=== PATIENT | female | born 1990 | race Caucasian/White ===

== ENCOUNTER 2019-09-21 13:00 | Emergency (ER) | payer OTHER, SELFPAY ==
[2019-09-21 13:08] VITALS: BP 101/67; PULSE 104; RESP 14; TEMP 36.9; O2SAT 98
--- NOTE | 2019-09-21 13:25 | ED.FEMALEGU ---
HPI - Female Genitourinary General Chief complaint: Urogenital-Female Stated complaint: Uti Time Seen by Provider: 09/21/19 13:25 Source: patient Mode of arrival: ambulatory Limitations: no limitations History of Present Illness HPI Narrative: Camila Dow is a 29 yo femae with a PMH of uti, GERD, [facility] with c/o dysuria that started 2 days ago. Multiple tx for uti here (May, July); will return to urologist as this is his third UTI and is many months and PCP told her she must go to urologist with recurrent infection Related Data Allergies Allergy/AdvReac Type Severity Reaction Status Date / Time amoxicillin Allergy Mild Vomiting Verified 09/21/19 13:16 clavulanic acid Allergy Mild Vomiting Verified 09/21/19 13:16 lansoprazole Allergy Mild Vomiting Verified 09/21/19 13:16 Review of Systems Review of Systems: Narrative: CONSTITUTIONAL: Denies fever, chills, sweats. EYES: Denies visual changes, redness, discharge. ENT: Denies rhinorrhea, congestion, sore throat, otalgia. CARDIOVASCULAR: Denies chest pain, palpitations, edema. RESPIRATORY: Denies dyspnea, wheezing, cough GASTROINTESTINAL: Denies abdominal pain, nausea, vomiting, diarrhea. GENITOURINARY: Has dysuria, unknown hematuria because used Azo, no abnormal discharge SKIN: Denies rash or itching. NEUROLOGIC: Denies numbness, or focal weakness. PSYCHIATRIC: Denies anxiety or depression. PMFSH Past Medical History Medical History (Updated 09/21/19 @ 13:37 by Anya Jolly CNP) Appendicitis Surgical History Surgical History H/O laminectomy Family History Family History Other No active medical problems Social History Social History (Updated 09/21/19 @ 13:35 by Anya Jolly CNP) Smoking status: Former smoker Alcohol intake: current Comments At time of signature, I agree with nursing past medical, surgical, social and family history. There is no relevant family history pertinent to the presenting complaint. Exam Narrative: Exam Narrative: GENERAL: This is a well-nourished, well-developed patient, in mild distress. HEAD: normocephalic, atraumatic. EYES: Sclera clear/white. Vision is grossly intact. EARS: External ears normal. Hearing grossly intact. NOSE: External nose normal without nasal discharge, nares without redness, no rhinorrhea. THROAT: Mucous membranes moist, NECK: Neck supple, CARDIOVASCULAR: Tachycardic rate and rhythm without murmurs, gallops, or rubs. RESPIRATORY: Clear to auscultation. Breath sounds equal bilaterally. No wheezes, rales, or rhonchi. GASTROINTESTINAL: Abdomen soft, mild suprapubic tenderness, no CVA angle tenderness SKIN: warm, intact with no suspicious lesions or rash, good texture and turgor. NEURO: awake, alert, and oriented to person, place and time. There were no obvious focal neurologic abnormalities. Steady gait EXTREMITIES: Normal range of motion. BACK: Nontender without deformity Course Course Emergency Course: Discussed multiple antibiotics patient is already taken for UTI will treat with Cipro 500 twice daily x7 days Patient must follow-up with urology Vital Signs Vital signs: Vital Signs Temperature 98.4 F 09/21/19 13:08 Pulse Rate 104 H 09/21/19 13:08 Respiratory Rate 14 09/21/19 13:08 Blood Pressure 101/67 09/21/19 13:08 Pulse Oximetry 98 09/21/19 13:08 Temperature 98.4 F 09/21/19 13:08 Pulse Rate 104 H 09/21/19 13:08 Respiratory Rate 14 09/21/19 13:08 Blood Pressure 101/67 09/21/19 13:08 Pulse Oximetry 98 09/21/19 13:08 MDM - Female Genitourinary Differential Diagnosis Differential diagnosis: Likely urinary tract infection, cystitis and other Lab Data Labs: Urine Glucose Trace Reference Range: Negative Urine Bilirubin Negative Reference Range: Negative Urine Ketone
== END 2019-09-21 13:43 | disposition home or self-care (01) ==
PROVIDERS: Emergency Provider Nurse Practitioner
DX: N30.01 Acute cystitis with hematuria (principal); Z87.891 Personal history of nicotine dependence; K21.9 Gastro-esophageal reflux disease without esophagitis
CPT/HCPCS: 81003; 87077; 87086; 87088; 87186; 99203; G0463

== ENCOUNTER 2022-10-18 10:09 | Emergency (ER) | payer OTHER, SELFPAY ==
[2022-10-18 10:18] VITALS: BP 102/63; PULSE 69; RESP 18; TEMP 36.6; O2SAT 100
--- NOTE | 2022-10-18 10:27 | ED.FEMALEGU ---
HPI - Female Genitourinary General Chief complaint: Urogenital-Female Stated complaint: Poss UTI History of Present Illness HPI Narrative: Patient presents with urinary frequency burning with urination and voiding small amounts. Patient states she has a history of frequent urinary tract infections and is followed by urologist. Patient takes your a malik on a daily basis for her symptoms. Patient denies any fever no abdominal pain no pelvic pain no gross hematuria and no flank pain. No vaginal discharge no concern for STIs Related Data Home Medications Medication Instructions Recorded Confirmed methenam 118 mg-m.blue 10 10/18/22 mg-s.phos 40.8 mg-p.salic 36 mg-hyos capsule (Uribel) moxifloxacin 0.5 % eye drops drp 10/18/22 Allergies Allergy/AdvReac Type Severity Reaction Status Date / Time amoxicillin Allergy Mild Vomiting Verified 10/18/22 10:11 clavulanic acid Allergy Mild Vomiting Verified 10/18/22 10:11 lansoprazole Allergy Mild Vomiting Verified 10/18/22 10:11 Anesthetics - Amide Type - AdvReac Nausea and Verified 10/18/22 10:30 Select A Vomiting Review of Systems Review of Systems: CONSTITUTIONAL: Denies fever, chills, or sweats. EYES: Denies visual changes, redness, or discharge. ENT: Denies rhinorrhea, congestion, sore throat, or otalgia. CARDIOVASCULAR: Denies chest pain, palpitations, or edema. RESPIRATORY: Denies cough or dyspnea. GASTROINTESTINAL: Denies abdominal pain, nausea, vomiting, or diarrhea. GENITOURINARY: Denies dysuria or hematuria. SKIN: Denies rash or itching. MUSCULOSKELETAL: Denies back pain, joint pain, or myalgia. NEUROLOGIC: Denies headache, numbness, or weakness. PSYCHIATRIC: Denies anxiety or depression. [facility] Past Medical History Medical History (Updated 10/18/22 @ 10:31 by BYRON Whittaker) Appendicitis Surgical History Surgical History H/O laminectomy Family History Family History Other No active medical problems Social History Social History (Updated 09/21/19 @ 13:35 by Anya A. Rik, CAP COVERER) Smoking status: Former smoker Alcohol intake: current Comments At time of signature, agree with nursing past medical, surgical, social and family history. There is no relevant family history pertinent to the presenting complaint Exam Narrative: GENERAL: Well-appearing, well-nourished, and in no acute distress. HEAD: Normocephalic, atraumatic. EYES: PERRLA and EOMI. ENT: Nares clear, no rhinorrhea or epistaxis. Mucous membranes moist. NECK: Supple. CHEST: Clear to auscultation. No respiratory distress. HEART: Regular rate and rhythm. No murmur heard. Normal peripheral pulses. ABDOMEN: Soft, nontender, nondistended, normal active bowel sounds. EXTREMITIES: Normal range of motion. No edema. SKIN: Warm, dry, no rash. NEURO: No focal deficits. Alert and oriented x3. [place] Coma Scale Eye Opening: Spontaneous 4 [place] Coma Scale Motor: Obeys Commands 6 [place] Coma Scale Verbal: Oriented 5 [place] Coma Scale Total 15 Course Course Level of Care: Express Care Visit Vital Signs Vital signs: Vital Signs Temperature 36.6 C 10/18/22 10:18 Pulse Rate 69 10/18/22 10:18 Respiratory Rate 18 10/18/22 10:18 Blood Pressure 102/63 10/18/22 10:18 Pulse Oximetry 100 10/18/22 10:18 Oxygen Delivery Room Air 10/18/22 10:18 Temperature 36.6 C 10/18/22 10:18 Pulse Rate 69 10/18/22 10:18 Respiratory Rate 18 10/18/22 10:18 Blood Pressure 102/63 10/18/22 10:18 Pulse Oximetry 100 10/18/22 10:18 Oxygen Delivery Room Air 10/18/22 10:18 Discharge Plan Discharge Clinical Impression: Bacterial UTI, Dysuria Patient Disposition: Home, Self-Care Condition: Stable Instructions: Antibiotic Form, Urinary Tract Infection in Women (DC) Additional Instructions: Increase fluids daniela
== END 2022-10-18 10:35 | disposition home or self-care (01) ==
PROVIDERS: Emergency Provider Nurse Practitioner Family
DX: N39.0 Urinary tract infection, site not specified (principal); Z87.891 Personal history of nicotine dependence
CPT/HCPCS: 81003; 87086; 99203; G0463

== ENCOUNTER 2023-05-13 15:07 | Emergency (ER) | payer OTHER, SELFPAY ==
[2023-05-13 15:22] VITALS: BP 106/65; PULSE 84; RESP 14; TEMP 36.8; O2SAT 100
--- NOTE | 2023-05-13 15:45 | ED.SKABFB ---
HPI - Skin/Abscess/Foreign Bdy General Chief complaint: Skin/Abscess/Foreign Body Stated complaint: cold sore on nose Time Seen by Provider: 05/13/23 15:35 Source: patient Mode of arrival: ambulatory Limitations: no limitations History of Present Illness HPI narrative: 32-year-old female to Express Care for complaint of lesion to left upper lip and inside of left nare for 2 days. Patient has been to treat at home with very without improvement. Patient endorses allergy to Augmentin and Prevacid. Patient denies fever, cough, headache. Patient able to tolerate fluids by mouth. Related Data Allergies Allergy/AdvReac Type Severity Reaction Status Date / Time amoxicillin Allergy Mild Vomiting Verified 05/13/23 15:20 clavulanic acid Allergy Mild Vomiting Verified 05/13/23 15:20 lansoprazole Allergy Mild Vomiting Verified 05/13/23 15:20 Anesthetics - Amide Type - AdvReac Nausea and Verified 05/13/23 15:20 Select A Vomiting PMFSH Past Medical History Medical History (Updated 05/13/23 @ 15:54 by Gita Godinez APRN) Appendicitis Surgical History Surgical History H/O laminectomy Family History Family History Other No active medical problems Social History Social History (Updated 09/21/19 @ 13:35 by Anya Jolly, CONTROL SYSTEM MANAGER) Smoking status: Former smoker Alcohol intake: current Course Course Level of Care: Express Care Visit Vital Signs Vital signs: Vital Signs Temperature 36.8 C 05/13/23 15:22 Pulse Rate 84 05/13/23 15:22 Respiratory Rate 14 05/13/23 15:22 Blood Pressure 106/65 05/13/23 15:22 Pulse Oximetry 100 05/13/23 15:22 Oxygen Delivery Room Air 05/13/23 15:22 Temperature 36.8 C 05/13/23 15:22 Pulse Rate 84 05/13/23 15:22 Respiratory Rate 14 05/13/23 15:22 Blood Pressure 106/65 05/13/23 15:22 Pulse Oximetry 100 05/13/23 15:22 Oxygen Delivery Room Air 05/13/23 15:22 MDM - Skin/Abscess/Foreign Bdy MDM Narrative Medical decision making narrative: 32-year-old female to Express Care for complaint of lesion to left upper lip and inside of left nare for 2 days. Patient exam consistent with herpesviral infection. Patient is sitting comfortably in exam room nontoxic in appearance. Patient appropriate for outpatient treatment and follow-up. Discharge instructions reviewed with patient, as well as provided in writing per nursing staff. The instructions also include specific and strict return/GO TO THE ER as well as f/u information. All questions have been answered, and the patient deny any further questions with discharge and discharge plan. Differential Diagnosis Differential diagnosis: Likely abscess of skin or subcutaneous tissue, herpes zoster, allergic reaction to drug, cellulitis, eczema and contact dermatitis Discharge Plan Discharge Clinical Impression: Herpesviral infection Patient Disposition: Home, Self-Care Condition: Stable Instructions: Oral Herpes Infection (ED) Patient Language: Surinamese Prescriptions: New valacyclovir [Valtrex] 1 gram tablet 1,000 mg PO Q12H Qty: 14 0RF Follow-up/Referrals: Star,Montserrat Marcial MD [Primary Care Provider] - Stand Alone Forms: Work/School Release IP Time of Disposition: 15:54
== END 2023-05-13 15:58 | disposition home or self-care (01) ==
PROVIDERS: Emergency Provider Nurse Practitioner Family; PCP Family Medicine
DX: B00.9 Herpesviral infection, unspecified (principal); Z87.891 Personal history of nicotine dependence
CPT/HCPCS: 99213; G0463

== ENCOUNTER 2023-08-25 18:23 | Emergency (ER) | payer OTHER, SELFPAY ==
[2023-08-25 18:27] VITALS: BP 102/73; PULSE 81; RESP 16; TEMP 37.2; O2SAT 100
--- NOTE | 2023-08-25 18:31 | ED.GENADULT ---
HPI - General Adult General Chief complaint: Upper Respiratory Infection Stated complaint: Urinary Problem Source: patient and RN notes reviewed Mode of arrival: ambulatory Limitations: no limitations History of Present Illness HPI narrative: 33 y/o female with hx interstitial cystitis presented for c/o burning with urination, frequency and urgency. onset one week. Endorses bloating and suprapubic pressure. Denies hematuria, nausea, vomiting, abdominal pain, flank pain, constipation, diarrhea, fevers or chills. Took Uribel and hydroxyzine. Related Data Home Medications Medication Instructions Recorded Confirmed No Home Medications 08/25/23 08/25/23 Allergies Allergy/AdvReac Type Severity Reaction Status Date / Time amoxicillin Allergy Mild Vomiting Verified 08/25/23 18:31 clavulanic acid Allergy Mild Vomiting Verified 08/25/23 18:31 lansoprazole Allergy Mild Vomiting Verified 08/25/23 18:31 Anesthetics - Amide Type - AdvReac Nausea and Verified 08/25/23 18:31 Select A Vomiting Review of Systems Review of Systems: CONSTITUTIONAL: Denies body aches, fever, chills, or sweats. CARDIOVASCULAR: Denies chest pain, palpitations, or edema. RESPIRATORY: Denies cough or dyspnea. GASTROINTESTINAL: Denies abdominal pain, nausea, vomiting, or diarrhea. GENITOURINARY: Reports dysuria, frequency, urgency, denies hematuria, flank pain SKIN: Denies rash, itching, or wounds. MUSCULOSKELETAL: Denies back pain or myalgia. [facility] Past Medical History Medical History (Updated 08/25/23 @ 18:43 by Rozina Jang APRN) Appendicitis Interstitial cystitis Surgical History Surgical History H/O laminectomy Family History Family History Other No active medical problems Social History Social History Smoking status: Former smoker Alcohol intake: current Comments At time of signature, I have reviewed and agree with nursing past medical, surgical, social and family history unless otherwise noted. Please see nursing chart for further information. There is no relevant family history pertinent to the presenting complaint Exam Narrative: GENERAL: Well-appearing and in no acute distress. ENT: Mucous membranes pink and moist. NECK: Normal AROM. Supple. CHEST: No respiratory distress. Clear to auscultation. HEART: Regular rate and rhythm. ABDOMEN: Soft, nondistended, normal active bowel sounds. Suprapubic tenderness. No CVA tenderness SKIN: Warm, dry, no rash. NEURO: No focal deficits. Alert and oriented x3. Gait steady. PSYCH: Normal affect. Course Course Emergency Course: Patient is aware of diagnosis, understands and agrees to treatment plan. Anticipatory guidance given. Patient agrees to follow-up as directed and is aware of reasons to seek care at the emergency department. Portions of this record may have been created with voice recognition software Level of Care: Express Care Visit Vital Signs Vital signs: Reviewed Medical Decision Making MDM Narrative Medical decision making narrative: Discussed physical exam findings and urine dip. Advised supportive measures and signs/symptoms to go to the ER. Pt is appropriate for outpt treatment and f/u. Differential Diagnosis Differential Diagnosis: UTI, cystitis, vaginitis Discharge Plan Discharge Clinical Impression: Cystitis Patient Disposition: Home, Self-Care Condition: Stable Instructions: Antibiotic Form, Urinary Tract Infection in Women (ED), Interstitial Cystitis (ED) Additional Instructions: Your urine will be sent of for a culture to determine if bacteria is causing your symptoms. If the culture shows a UTI, you will be notified and an antibiotic will be called in for you. you will need to follow up with your PCP/urologist for further evaluation and
== END 2023-08-25 18:45 | disposition home or self-care (01) ==
PROVIDERS: Emergency Provider Nurse Practitioner Family; PCP Family Medicine
DX: N30.90 Cystitis, unspecified without hematuria (principal)
CPT/HCPCS: 81003; 87086; 99213; G0463

== ENCOUNTER 2024-01-25 10:29 | Emergency (ER) | payer OTHER, SELFPAY ==
--- NOTE | ~2024-01-25 | XR_ITS ---
XR wrist RT min 3V Ordering provider: Gita Godinez APRN History: . pain,swelling. Unknown injury . Comparison: None. FINDINGS: BONES: No acute fracture or dislocation. No definite scaphoid fracture. JOINT SPACES: Normal. SOFT TISSUES: Normal. IMPRESSION: No acute osseous abnormality right wrist. Reviewed, dictated and finalized at location A. [employer]
[2024-01-25 10:38] VITALS: BP 94/67; PULSE 75; RESP 16; TEMP 36.5; O2SAT 100
--- NOTE | 2024-01-25 11:29 | ED_ITS ---
HPI - Extremity Injury (Upper) General Chief Complaint: Extremity Injury, Upper Stated Complaint: right wrist swollen and painful Time Seen by Provider: 01/25/24 11:29 Source: patient, RN notes reviewed and old records reviewed Mode of arrival: ambulatory Limitations: no limitations History of Present Illness HPI narrative: 33-year-old female to Express Care with complaint right dorsal wrist pain that started Wednesday morning. Patient states that pain intermittently radiates into hand and upper arm. Patient denies injury, pertinent medical history. 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 Patient states she also was horsing around with her large dog over the weekend which could have caused the issue. Patient states pain became acutely worse this morning. Patient denies numbness, tingling, weakness, decreased ROM. Patient resting comfortably in exam room in no acute distress. Related Data Home Medications Medication Instructions Recorded Confirmed No Home Medications 08/25/23 01/25/24 Allergies Allergy/AdvReac Type Severity Reaction Status Date / Time amoxicillin Allergy Mild Vomiting Verified 01/25/24 10:55 clavulanic acid Allergy Mild Vomiting Verified 01/25/24 10:55 lansoprazole Allergy Mild Vomiting Verified 01/25/24 10:55 Anesthetics - Amide Type - AdvReac Nausea and Verified 01/25/24 10:55 Select A Vomiting Review of Systems Review of Systems: All systems reviewed & are unremarkable except as noted in HPI and below Constitutional: Constitutional: Reports no additional constitutional complaint s Eyes: Eyes: Reports no additional eye complaints ENT: Reports system reviewed and no additional complaints, except as documented Cardiovascular: Cardiovascular: Reports no additional cardiovascular complaints, Denies chest pain and Denies dyspnea Respiratory: Respiratory: Reports no additional respiratory complaints, Denies cough and Denies dyspnea Musculoskeletal: Musculoskeletal: Reports as per HPI, Reports arthralgias and Reports joint swelling Neurologic: Reports system reviewed and no additional complaints, except as documented Psychiatric: Psychiatric: Reports no additional psychiatric complaints [facility] Past Medical History Medical History Appendicitis Interstitial cystitis Surgical History Surgical History H/O laminectomy Family History Family History Other No active medical problems Social History Social History Smoking status: Former smoker Alcohol intake: current Comments At the time of my signature, I reviewed and agree with the nursing past medical, surgical, social, and family history. There is no relevant family history pertinent to the patient complaint. Exam Const: General: cooperative, healthy appearing, comfortable, no acute distress, alert and well nourished Nutritional Appearance: well nourished Orientation/consciousness: patient oriented x3 Limitations: no limitations HENMT: Head: normal to inspection Ears: external ears normal Face/Nose/Sinus: Normal external nose present, Normal nares present, normal facial exam, No erythema and No edema Face and sinus: normal facial exam, no erythema and no edema Mouth: Yes Normal oral and palatal mucosa present Eyes: General: appearance normal, both eyes and all related structures Neck: Neck: normal visual inspection, full ROM and no meningeal signs Chest: Chest palpation & inspection: normal inspection of the chest Resp: Effort & Inspection: normal respiratory effort and able to speak in complete sentences Cardio: Jugular venous distension: no JVD Rate: regular rate Rhythm: regular rhythm Back/Spine/Pelvis: Cervical Spine: cervical ROM normal Skin: General skin exam: normal color, no rashes or lesions noted and turgor normal Neuro: General: patient oriented x3, gait normal, moves all extremities and no meningeal signs Speech: normal speech Gait exam (Neuro): Normal gait present Extrem: General: full ROM and capillary refill normal Right upper extremity: wrist tenderness of the dorsal wrist, swelling of the dorsal wrist, abnormal ROM pain with active ROM during and normal vascular exam; no unusual warmth, no abrasions, no lacerations, no ecchymosis, no crepitus and no deformity Psych: Appearance: grossly normal and well kempt Course Course Emergency Course: Some parts of this dictation were generated by voice recognition software and may contain typographical and/or grammatical inaccuracies. Level of Care: Express Care Visit Vital Signs Vital signs: Vital Signs Temperature 36.5 C 01/25/24 10:38 Pulse Rate 75 01/25/24 10:38 Respiratory Rate 16 01/25/24 10:38 Blood Pressure 94/67 L 01/25/24 10:38 Pulse Oximetry 100 01/25/24 10:38 Oxygen Delivery Room Air 01/25/24 10:38 Temperature 36.5 C 01/25/24 10:38 Pulse Rate 75 01/25/24 10:38 Respiratory Rate 16 01/25/24 10:38 Blood Pressure 94/67 L 01/25/24 10:38 Pulse Oximetry 100 01/25/24 10:38 Oxygen Delivery Room Air 01/25/24 10:38 reviewed MDM - Extremity Injury (Upper) MDM Narrative Medical decision making narrative: 33-year-old female to Express Care with complaint right dorsal wrist pain that started Wednesday morning. Patient states that pain intermittently radiates into hand and upper arm. Patient denies injury, pertinent medical history. 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 Patient states she also was horsing around with her large dog over the weekend which could have caused the issue. Patient states pain became acutely worse this morning. Patient denies numbness, tingling, weakness, decreased ROM. Patient resting comfortably in exam room in no acute distress. On exam, dorsal wrist tenderness with palpation, mild dorsal swelling. Pain with active ROM. Exam otherwise unremarkable. Radiology of right wrist negative for acute findings in clinic. Patient is sitting comfortably in exam room nontoxic in appearance. Patient appropriate for outpatient treatment and follow-up. Discharge instructions reviewed with patient, as well as provided in writing per nursing staff. The instructions also include specific and strict return/GO TO THE ER as well as f/u information. All questions have been answered, and the patient deny any further questions with discharge and discharge plan. Some parts of this dictation were generated by voice recognition software and may contain typographical and/or grammatical inaccuracies. Differential Diagnosis Differential diagnosis: Likely sprain and strain of wrist, fracture of wrist, finger sprain, dislocation of finger, Colles' fracture, fracture of hand, dislocation of shoulder, fracture of humerus and fracture of clavicle Imaging Data Radiologist's impression: XR wrist RT min 3V Ordering provider: Gita Godinez APRN History: . pain,swelling. Unknown injury . Comparison: None. FINDINGS: BONES: No acute fracture or dislocation. No definite scaphoid fracture. JOINT SPACES: Normal. SOFT TISSUES: Normal. IMPRESSION: No acute osseous abnormality right wrist. Discharge Plan Discharge Clinical Impression: Muscle strain of right wrist Patient Disposition: Home, Self-Care Condition: Stable Instructions: P.R.I.C.E. Treatment (ED), Swollen Joint (ED) Additional Instructions: please review detached instruction regarding swollen joint and vargas treatment and implement suggestions as tolerated for new or worsening symptoms please go directly to the emergency department Prescriptions: No Action No Home Medications Follow-up/Referrals: PHYSICIAN NOT ON STAFF,NONSTAFF [Primary Care Provider] - Stand Alone Forms: Work/School Release IP
== END 2024-01-25 11:45 | disposition home or self-care (01) ==
PROVIDERS: Emergency Provider Nurse Practitioner Family
DX: S66.911A Strain of unspecified muscle, fascia and tendon at wrist and hand level, right hand, initial encounter (principal); Z87.891 Personal history of nicotine dependence; X58.XXXA Exposure to other specified factors, initial encounter
CPT/HCPCS: 73110; 99213; G0463

== ENCOUNTER 2024-11-08 10:20 | Emergency (ER) | payer OTHER, SELFPAY ==
[2024-11-08 10:27] VITALS: BP 98/65; PULSE 79; RESP 16; TEMP 36.9; O2SAT 100
--- NOTE | 2024-11-08 10:41 | ED.FEMALEGU ---
HPI - Female Genitourinary General Chief complaint: Urogenital-Female Stated complaint: UTI Time Seen by Provider: 11/08/24 10:41 Source: patient Mode of arrival: ambulatory Limitations: no limitations History of Present Illness HPI Narrative: 34 yo F with hx of IC presents with c/o urinary urgency, bladder spasm and bloating, dysuria for 1 day. Taking OTC urinary pain relief. Turned urine green. Afebrile. No N/V. All systems reviewed and negative except as noted above. Related Data Home Medications ?Medication ?Instructions ?Recorded ?Confirmed ?Last Taken ?Type hydroxyzine HCl 25 mg tablet mg 11/08/24 Unknown History methenam 118 mg-m.blue 10 11/08/24 Unknown History mg-s.phos 40.8 mg-p.salic 36 mg-hyos capsule (Uro-MP) Allergies Allergy/AdvReac Type Severity Reaction Status Date / Time amoxicillin Allergy Mild Vomiting Verified 11/08/24 10:34 clavulanic acid Allergy Mild Vomiting Verified 11/08/24 10:34 lansoprazole Allergy Mild Vomiting Verified 11/08/24 10:34 Anesthetics - Amide Type - AdvReac Nausea and Verified 11/08/24 10:34 Select A Vomiting PMFSH Past Medical History Medical History Appendicitis Interstitial cystitis Surgical History Surgical History H/O laminectomy Family History Family History Other No active medical problems Social History Social History Smoking status: Former smoker Alcohol intake: current Comments At time of signature, agree with nursing past medical, surgical, social and family history. There is no relevant family history pertinent to the presenting complaint. Exam Narrative: GENERAL: This is a well-nourished, well-developed patient, in no apparent distress. HEAD: normocephalic, atraumatic. EYES: PERRL. Sclera clear/white. Vision is grossly intact. EARS: External ears normal NOSE: External nose normal NECK: Neck supple, non-tender without lymphadenopathy, masses or thyromegaly. CARDIOVASCULAR: Regular rate and rhythm without murmurs, gallops, or rubs. RESPIRATORY: Clear to auscultation. Breath sounds equal bilaterally. No wheezes, rales, or rhonchi. SKIN: warm, Dry, intact with no suspicious lesions or rash, good texture and turgor. NEURO: awake, alert, and oriented to person, place and time. There were no obvious focal neurologic abnormalities. EXTREMITIES: No joint tenderness, effusion, or edema noted. Course Course Level of Care: Express Care Visit Vital Signs Vital signs: Vital Signs Temperature 36.9 C 11/08/24 10:27 Pulse Rate 79 11/08/24 10:27 Respiratory Rate 16 11/08/24 10:27 Blood Pressure 98/65 L 11/08/24 10:27 Pulse Oximetry 100 11/08/24 10:27 Oxygen Delivery Room Air 11/08/24 10:27 Temperature 36.9 C 11/08/24 10:27 Pulse Rate 79 11/08/24 10:27 Respiratory Rate 16 11/08/24 10:27 Blood Pressure 98/65 L 11/08/24 10:27 Pulse Oximetry 100 11/08/24 10:27 Oxygen Delivery Room Air 11/08/24 10:27 reviewed MDM - Female Genitourinary MDM Narrative Medical decision making narrative: unable to complaint urinalysis today due to green colored urine. Urine culture ordered. Due to patient's symptoms and history of urinary tract infections will treat with antibiotic. Patient is well-appearing, nontoxic. Agrees with plan of care. Differential Diagnosis Differential diagnosis: Likely urinary tract infection and cystitis Discharge Plan Discharge Clinical Impression: Urinary tract infection Qualifiers: Urinary tract infection type: site unspecified Patient Disposition: Home Condition: Stable Instructions: Antibiotic Form Additional Instructions: Take antibiotic as prescribed until gone. Follow-up with your urologist as needed. Patient Language: Cape Verdean Prescriptions: New sulfamethoxazole-trimethoprim [Bactrim DS] 800-160 mg tablet 1 tablet PO Q12H 5 Days Qty: 10 0RF No Action hydroxyzine HCl 25 mg tablet Uro-MP 118-10-40.8-36 mg capsule Follow-up/Referrals: Jake,MARK Palacios [Primary Care Provider, Unknown] Time of Disposition: 10:49
--- OUTSIDE RECORDS SUMMARY | 2024-11-08 10:43 | XMS_ITS | Encounter Summary ---
Author Organization [facility] Address [address] [place] [address] Phone Care Team Providers Care Aerospace Engineer Officer Armament Name Role Phone Nancy Pineda MD Unavailable [phone] Montserrat Graves MD Primary Care Provider [phone] Suzanne Joseph APRN, PRINCIPAL NETWORK ARCHITECT Primary Care Provider Reason for Visit * Reason Comments Medication Refill Encounter Details Date Type Department Care Team (Late st Contact Info) Description 03/30/2023 Refill [facility] [address] [place] [address] Emmanuel Briceno APRN, PRINCIPAL NETWORK ARCHITECT [address] [place] [address] Medication Refill Social History Tobacco Use Types Packs/Day Years Used Date Smoking Tobacco: Former Cigarettes 1 4 Smokeless Tobacco: Never Alcohol Use Standard Drinks/Week Comments No 0 (1 standard drink = 0.6 oz pur e alcohol) [facility] Utilities Answer Date Recorded In the past 12 months has [employer], gas, oil, or water company threatened to shut off services in your home? No 02/25/2023 Social Connection and Isolation Panel Answer Date Recorded In a typical week, how many times do you talk on the phone with family, friends, or neighbors? More than three times a week 02/25/2023 How often do you get togethe r with friends or relatives? Once a week 02/25/2023 How often do you attend chur ch or mormonism services? More than 4 times per year 02/25/2023 Do you belong to any clubs o r organizations such as oriental orthodox groups, unions, fraternal or athletic groups, or school groups? No 02/25/2023 Attends Club or Organization Meetings Not on umair e 02/25/2023 Are you , , di vorced, , never , or living with a partner? 02/25/2023 AUDIT-C Answer Date Recorded Q1: How often do you have a drink containing alcohol? Never 02/25/2023 Q2: How many drinks containi ng alcohol do you have on a typical day when you are drinking? Patient does not drink Q3: How often do you have si x or more drinks on one occasion? Never 02/25/2023 Overall Financial Resource Strain (CARDIA) Answe r Date Recorded How hard is it for you to pa y for the very basics like food, housing, medical care, and heating? Not very hard 02/25/2023 PHQ-2 Answer Date Recorded Total Score - Questions 1-9 0 12/13 [facility] - Occupational Stress Questionnaire Answer Date Recorded Do you feel stress - tense, restless, nervous, or anxious, or unable to sleep at night because your mind is troubled all the time - these days? Rather much 02/25/2023 Exercise Vital Sign Answer Date Recorde d On average, how many days pe r week do you engage in moderate to strenuous exercise (like a brisk walk)? 1 day 02/25/2023 On average, how many minutes do you engage in exercise at this level? 30 min 02/25/2023 Hunger Vital Sign Answer Date Recorded Within the past 12 months, y ou worried that your food would run out before you got the money to buy more. Never true 02/26/20 23 Within the past 12 months, t he food you bought just didn't last and you didn't have money to get more. Never true 02/25/2023 PRAPARE - Transportation Answer Date Re corded In the past 12 months, has l ack of transportation kept you from medical appointments or from getting medications? No 02/12 In the past 12 months, has l ack of transportation kept you from meetings, work, or from getting things needed for daily living? No 02/25/2023 Housing Stability Vital Sign Answer Kevin e Recorded In the last 12 months, was t here a time when you were not able to pay the mortgage or rent on time? No 02/25/2023 In the last 12 months, how many places have you lived? 1 02/25/2023 In the last 12 months, was t here a time when you did not have a steady place to sleep or slept in a nursing home (including now)? No 02/25/2023 Education Answer Date Recorded What is the highest level of school you have completed or the highest degree you have received? Some college, no degree 03/12/2020 Sexually Active Control Partners Comments Not Currently Comments No Sex and Gender Information Value Date Recorded Sex Assigned at Not on file Legal Sex Female 12:13 AM CDT Gender Identity Not on file Sexual Orientation Not on file documented as of this encounter Plan of Treatment Not on file documented as of this encounter Visit Diagnoses Not on filedocumented in this encounter Additional Health Concerns Assessment Noted Time PHQ-9 Depression Total Score: 0 12/30/19 22 10:00 AM CDT documented as of this encounter Care Teams Aerospace Engineer Officer Armament Relationship Specialty Start Date End Date Montserrat Graves MD [address] [place] [address] PCP - General Family Medicine 02/23/23 10/29/24 Suzanne Joseph, LIME SLUDGE KILN OPERATOR, PRINCIPAL NETWORK ARCHITECT [address] [place] [address] PCP - General Advanced Practice Nurse 10/30/24 Nancy Pineda MD Consulting Physician Obstetrics & Gynecology 12/28/17 documented as of this encounter
--- OUTSIDE RECORDS SUMMARY | 2024-11-08 10:43 | XMS_ITS | Clinical Summary ---
Author Organization [facility] Address [address] [place] [address] Phone Care Team Providers Care Insulation Cupola Charger Name Role Phone Nancy Pineda MD Unavailable [phone] Suzanne Joseph APRN, SHEETMETAL TRADES WORKER Primary Care Provider Allergies Active Allergy Reactions Criticality Noted Date Comments Anesthetics, Amide Vomiting Medium 06/20/2021 Amoxicillin-Pot Clavulanate Vomiting Medium 02/15/20 15 Iron Sucrose Other (see Comments) Medium 03/04/2022 Headaches Lansoprazole Diarrhea,Vomiting Medium Medications cetirizine (ZyrTEC) 10 MG Tablet Take 10 mg by mouth daily. Active folic acid (FOLVITE) 1 MG TabletIndicatio ns:Folate deficiency Take 1 Tablet by mouth daily. 90 Tablet 1 2 Active Additional Information Patient not taking.Reported on 03/04/2023 Cyanocobalamin (B-12 PO) Take by mouth. Activ e Mirabegron ER (Myrbetriq) 25 MG TABLET SR 24 HR Take by mouth. Activ e Meth-Hyo-M Bl-Na Phos-Ph Amrik (Uribel) 118 MG Capsule TAKE 1 CAPSULE BY MOUTH THREE TIMES DAILY NEEDED FOR DYSURIA 3 Active Elderberry 575 MG/5ML Syrup Take by mouth. Ac tive hydrOXYzine (ATARAX) 25 MG Tablet TAKE 1 TABLET BY MOUTH DAILY NEEDED FOR BLADDER PAIN 3 Active Cyanocobalamin (VITAMIN B12 PO) Take by mouth. 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 Iron deficiency anemia 06/26/2021 Heart palpitations 04/14/2021 Near syncope 04/14/2021 Menorrhagia with irregular cycle 04/14/2021 Leukopenia 04/14/2021 Gastroesophageal reflux disease 04/07/2021 PND (post-nasal drip) 04/07/2021 Depression 03/26/2020 S/P lumbar laminectomy 04/03/2019 Chronic midline low back pain with bilateral sci atica 12/28/2017 Fatigue 12/28/2017 Anemia 07/29/2013 Overview (04/08/2018): Overview: ANEMIA NOS Anxiety 07/29/2013 Overview (04/08/2018): Overview: ANXIETY STATE NOS Herniated lumbar intervertebral disc Overview (01/28/2015): L5-S1 Resolved Problems Problem Noted Date Diagnosed Date Resolved Date Adjustment disorder with depressed mood 04/03/2019 03/26/2020 Prediabetes 03/26/2020 Neutropenia 04/03/2019 Immunizations Immunization Administration Dates Next Due Influenza Vaccine greater than 3 yrs 03/15/2009 Influenza Vaccine, Quadrivalent, PF 04/03/2019 Influenza, Seasonal, Injectable, Undefined 03/15 TDAP Vaccine 11/07/2013 Family History Medical History Relation Name Comments Diabetes Brother Anemia Father atrophic metaplastic Autoimmune Disease Father atrophic metaplastic Heart Disease Father atrophic metaplastic hole i n heart Other-comment Father atrophic metaplastic Stroke Father atrophic metaplastic Cancer Maternal Grandmother Heart Disease Paternal Grandmother Kidney Disease Neg Hx Relation Name Status Comments Brother Father atrophic metaplastic Alive Maternal Grandmother Mother Alive Paternal Grandmother Social History Tobacco Use Types Packs/Day Years Used Date Smoking Tobacco: Former Cigarettes 1 4 Smokeless Tobacco: Never Tobacco Cessation:Counseling Given: Not Answered Alcohol Use Standard Drinks/Week Comments No 0 (1 standard drink = 0.6 oz pur e alcohol) [facility] Utilities Answer Date Recorded In the past 12 months has th e electric, gas, oil, or water company threatened to [...] week 02/25/2023 How often do you attend [facility] or latter-day services? More than 4 times per year 02/25/2023 Do you belong to any clubs o r organizations such as sikh groups, unions, fraternal or athletic groups, or [...] Total Score - Questions 1-9 0 12/13 [facility] - Occupational Stress Questionnaire Answer Date Recorded [...] place to sleep or slept in a correction (including now)? No 02/25/2023 Education Answer Date [...] on file Sexual Orientation Not on file Last Filed Vital Signs Vital Sign Reading Time Taken Comments Blood Pressure 108/72 07/29/2023 5:45 PM CDT Pulse 77 07/29/2023 5:45 PM CDT Temperature 36.6 C (97.9 F) 07/29/2023 2:24 PM CDT Respiratory Rate 18 07/29/2023 2:24 PM CDT Oxygen Saturation 100% 07/29/2023 5:45 PM CDT Inhaled Oxygen Concentration - - Weight 65.8 kg (145 lb) 07/29/2023 2:24 PM CDT Height 162.6 cm (5' 4) 07/29/2023 2:24 PM CDT Body Mass Index 24.89 07/29/2023 2:24 PM CDT Plan of Treatment Health Maintenance Due Date Last Done Comments Hepatitis C Virus (HCV) Screening 1988 Hepatitis B Immunization (1 of 3 - 19+ 3-dose series) 07/16/2007 Human Papillomavirus (HPV) Immunization (1 - 3-dose SCDM series) 07/16/2015 Td Immunization Every 10 Yea rs (Adults With 1 Tdap) 11/08/2023 11/07/2013 SARS-COV-2 Immunization ( - season) 2023 Pap Smear 09/01/2024 09/01/2021, 08/13/2016 Influenza Immunization (#1) 11/13/202403/16, 03/15/2009, 03/15/2009 Cervical Cancer Screening (CCS) 09/01/2026 HPV/Cotest 09/01/2026 09/01/2021 Respiratory Syncytial Virus (RSV) Immunization (Adult) (1 - 1-dose 75+ series) 07/16/2063 Meningococcal Immunization (ACWY) Aged Out No longer eligible b ased on patient's age to complete this topic Pneumococcal Immunization Combined Aged Out No longer eligible b ased on patient's age to complete this topic Rotavirus Immunization Aged Out No lo nger eligible based on patient's age to complete this topic Procedures Procedure Name Priority Date/Time Associated Diagnosis Comments HUMAN PAPILLOMA VIRUS (HPV) 09/01/2021 12:00 AM CDT PATHOLOGY CYTOLOGY OPERATIONS LABEL CLERK 09/01/2021 12:00 AM CDT from Last 3 Months or Most Recently Relevant to Health Maintenance Results * PATHOLOGY CYTOLOGY OPERATIONS LABEL CLERK (09/01/2021 12:00 AM CDT) 09/01/2021 us Not On File Provider PATHOLOGY/CYTOLOGY ORDERABL ES Final Result Performing Organization Address [facility] de Phone Number SCAN * HUMAN PAPILLOMA VIRUS (HPV) (09/01/2021 12:00 AM CDT) 09/01/2021 us Not On File Provider LAB SEND OUTS Final Resul t Performing Organization Address [facility] Co de Phone Number SCAN from Last 3 Months or Most Recently Relevant to Health Maintenance Insurance [facility] Care Teams Insulation Cupola Charger Relationship Specialty Start Date End Date Suzanne Joseph, BINDERY OPERATOR, SHEETMETAL TRADES WORKER [address] [place] [address] PCP - General Advanced Practice Nurse 10/30/24 Nancy Pineda MD Consulting Physician Obstetrics & Gynecology 12/28/17
--- OUTSIDE RECORDS SUMMARY | 2024-11-08 10:43 | XMS_ITS | Clinical Summary ---
Author Organization [facility] Address [address] [place] [address] Care Team Providers Care Embossing Machine Operator Helper Name Role Phone Boo Do MD Primary Care Provider Unavail able Yolande Polo MD Unavailable [phone] Source Comments [facility],non-owned Affiliates and Associated Physician Practices is amultiple site organization consisting of ambulatory clinics and hospital sitesin [place], [place], [place] and [place]. This disclosure is being madepursuant to the Care Everywhere program and may not contain all information available regarding this patient. Last updated 17.[facility] Allergies Active Allergy Reactions Criticality Noted Date Comments Fd&C Red #40-Lansoprazole Vomiting 11/18/2017 Medications * Be aware that medications may not be up to date on this document. Alwaysverify current medications with the patient. No known medications Active Problems No known active problems Social History Tobacco Use Types Packs/Day Years Used Date Smoking Tobacco: Every Day Smokeless Tobacco: Never Comments No Sex and Gender Information Value Date Recorded Sex Assigned at Not on file Legal Sex Female 5:41 AM CONTACT CLERK Gender Identity Not on file Sexual Orientation Not on file Last Filed Vital Signs Vital Sign Reading Time Taken Comments Blood Pressure 110/66 12/15/2018 9:45 AM CDT Pulse 84 12/15/2018 9:45 AM CDT Temperature 36.9 C (98.4 F) 12/15/2018 9:45 AM CDT Respiratory Rate 16 12/15/2018 9:45 AM CDT Oxygen Saturation 97% 12/15/2018 9:45 AM CDT Inhaled Oxygen Concentration - - Weight 65.8 kg (145 lb) 12/15/2018 9:45 AM CDT Height 162.6 cm (5' 4) 12/15/2018 9:45 AM CDT Body Mass Index 24.89 12/15/2018 9:45 AM CDT Plan of Treatment Health Maintenance Due Date Last Done Comments HIV SCREENING 07/16/2003 HEPATITIS C SCREENING 07/11/2006 DTAP/TDAP/TD VACCINES (1 - Tdap) 07/16/2007 HEPATITIS B VACCINE (1 of 3 - 19+ 3-dose series) 07/16/2007 HPV VACCINE (1 - 3-dose SCDM series) 07/16/2015 COVID-19 VACCINE (1 - 2023-2 5 season) 2023 DEPRESSION SCREENING 03/15/2024 INFLUENZA VACCINE (#1) 2024 ZOSTER VACCINE (1 of 2) 2038 HIB VACCINE Aged Out No longer eligi ble based on patient's age to complete this topic MENINGOCOCCAL (Group B) VACC INE SHARED DECISION-MAKING Aged Out No longer eligibl e based on patient's age to complete this topic MENINGOCOCCAL GROUPS A/C/Y/W VACCINE Aged Out No longer eligible b ased on patient's age to complete this topic PNEUMOCOCCAL VACCINE Aged Out No long er eligible based on patient's age to complete this topic Insurance [employer] CIGNA Care Teams Embossing Machine Operator Helper Relationship Specialty Start Date End Date Boo Do MD PCP - General 01/04/18 Yolande Polo MD Family Medicine 01/04/18
== END 2024-11-08 10:52 | disposition home or self-care (01) ==
PROVIDERS: Emergency Provider Nurse Practitioner Family; PCP Nurse Practitioner Family
DX: N39.0 Urinary tract infection, site not specified (principal); Z87.891 Personal history of nicotine dependence
CPT/HCPCS: 87086; 99213; G0463

== ENCOUNTER 2024-12-28 16:49 | Emergency (ER) | payer OTHER, SELFPAY ==
[2024-12-28 16:56] VITALS: BP 106/69; PULSE 70; RESP 16; TEMP 36.6; O2SAT 100
--- NOTE | 2024-12-28 17:04 | ED.FEMALEGU ---
HPI - Female Genitourinary General Chief complaint: Urogenital-Female Stated complaint: Urinary Problem Time Seen by Provider: 12/28/24 17:05 Source: patient and RN notes reviewed Mode of arrival: ambulatory Limitations: no limitations History of Present Illness HPI Narrative: 34-year-old female presents with concern for dysuria and frequency. She reports history of urinary tract infection. She also has cystitis. She reports sweats but denies fever, body aches. She denies abdominal pain, nausea, vomiting, back pain MD elicited complaint: UTI Related Data Home Medications ?Medication ?Instructions ?Recorded ?Confirmed ?Last Taken ?Type hydroxyzine HCl 25 mg tablet mg 11/08/24 Unknown History Held on 12/28/24. Instructions: Resume on 01/04/25. Do not take while taking Cipro methenam 118 mg-m.blue 10 11/08/24 Unknown History mg-s.phos 40.8 mg-p.salic 36 mg-hyos capsule (Uro-MP) Allergies Allergy/AdvReac Type Severity Reaction Status Date / Time amoxicillin Allergy Mild Vomiting Verified 12/28/24 16:53 clavulanic acid Allergy Mild Vomiting Verified 12/28/24 16:53 lansoprazole Allergy Mild Vomiting Verified 12/28/24 16:53 Anesthetics - Amide Type - AdvReac Nausea and Verified 12/28/24 16:53 Select A Vomiting Review of Systems Review of Systems: CONSTITUTIONAL: Denies malaise, chills, sweats, or fever. CARDIOVASCULAR: Denies chest pain, palpitations, or edema. RESPIRATORY: Denies cough or dyspnea. GASTROINTESTINAL: Denies abdominal pain, nausea, vomiting, diarrhea GENITOURINARY: Reports dysuria, frequency, urgency, suprapubic pressure. Denies flank pain or hematuria. SKIN: Denies rash or itching. MUSCULOSKELETAL: Denies back pain or myalgia. All systems reviewed & are unremarkable except as noted in HPI and below PMFSH Past Medical History Medical History Appendicitis Interstitial cystitis Surgical History Surgical History H/O laminectomy Family History Family History Other No active medical problems Social History Social History Smoking status: Former smoker Alcohol intake: current Comments At time of signature, agree with nursing past medical, surgical, social and family history. There is no relevant family history pertinent to the presenting complaint Exam Narrative: GENERAL: Well-appearing, well-nourished, and in no acute distress. HEAD: Normocephalic. EYES: PERRLA, conjunctivae clear. NECK: Supple. No lymphadenopathy CHEST: Clear to auscultation. No respiratory distress. HEART: Regular rate and rhythm. ABDOMEN: Soft, nontender upon palpation, nondistended, no palpable or pulsatile masses, no guarding. No CVA tenderness SKIN: Warm, dry, no rash. NEURO: Alert and oriented x3. PSYCH: Normal mood and affect Course Course Emergency Course: Patient is aware of diagnosis, understands and agrees to treatment plan. Anticipatory guidance given. Patient agrees to follow-up as directed and is aware of reasons to seek care at the emergency department. Portions of this record may have been created with voice recognition software Level of Care: Express Care Visit Vital Signs Vital signs: Vital Signs Temperature 97.9 F 12/28/24 16:56 Pulse Rate 70 12/28/24 16:56 Respiratory Rate 16 12/28/24 16:56 Blood Pressure 106/69 12/28/24 16:56 Pulse Oximetry 100 12/28/24 16:56 Oxygen Delivery Room Air 12/28/24 16:56 Temperature 97.9 F 12/28/24 16:56 Pulse Rate 70 12/28/24 16:56 Respiratory Rate 16 12/28/24 16:56 Blood Pressure 106/69 12/28/24 16:56 Pulse Oximetry 100 12/28/24 16:56 Oxygen Delivery Room Air 12/28/24 16:56 Reviewed. MDM - Female Genitourinary MDM Narrative Medical decision making narrative: Exam findings and UA show no acute concerns or changes; patient is non-toxic appearing and is in no distress. Patient is appropriate for outpatient treatment and follow-up. Differential Diagnosis Differential diagnosis: Likely urinary tract infection and cystitis Critical Care Time Critical Care Time Critical Care Time: No Discharge Plan Discharge Clinical Impression: Urinary tract infection Patient Disposition: Home Condition: Stable Instructions: Antibiotic Form, Urinary Tract Infection in Women (ED) Additional Instructions: We will send a urine culture to the lab; if the culture identifies an organism that the prescribed antibiotic will not treat, you will receive a phone call from an urgent care staff member and an appropriate antibiotic will be prescribed. -Your symptoms should begin to improve within a day of starting antibiotics. But you should finish all the antibiotic pills you get. Otherwise your infection might come back. -Also recommend: increase water intake. Tylenol/ibuprofen as needed for pain or fever -Follow-up with your primary care provider for urine recheck or seek ER visit if condition worsens with high fever, nausea, vomiting and severe back pain. Patient Language: South Korean Prescriptions: New ciprofloxacin HCl 500 mg tablet 500 mg PO Q12H 5 Days Qty: 10 0RF Held hydroxyzine HCl 25 mg tablet Hold Instructions: Resume on 01/04/25. Do not take while taking Cipro No Action Uro-MP 118-10-40.8-36 mg capsule Follow-up/Referrals: Jake,MARK Palacios [Primary Care Provider, Unknown] Time of Disposition: 17:16
[2024-12-28 17:17] LABS: EDUAAPPEAR Clear; EDUABILI Negative (Negative); EDUABLOOD Trace (Negative); EDUACOLOR1 Yellow; EDUAGLUCOSE Negative (Negative); EDUAKETONE Negative (Negative); EDUALEUKO 1+ (Negative); EDUANITRATE Negative (Negative); EDUAPH 6.5; EDUAPROTEIN Negative (Negative); EDUASPGRAVITY 1.015; EDUAUROBILI 0.2
--- OUTSIDE RECORDS SUMMARY | 2024-12-28 17:56 | XMS_ITS | Clinical Summary ---
Author Organization [facility] Address [address] [place] [address] Care Team Providers Care Credit Risk Management Director Name Role Phone Boo Do MD Primary Care Provider Unavail able Yolande Polo MD Unavailable [phone] Source Comments [facility],non-owned Affiliates and Associated Physician Practices is amultiple site organization consisting of ambulatory clinics and [place] sitesin [place] and [place]. This disclosure is being madepursuant to the Care Everywhere program and may not contain all information available regarding this patient. 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
--- OUTSIDE RECORDS SUMMARY | 2024-12-28 17:56 | XMS_ITS | Encounter Summary ---
Author Organization [facility] Address [address] [place] [address] Phone Care Team Providers Care Resolution Specialist Name Role Phone Yolande Polo MD Primary Care Provider [phone] Suzanne Joseph NP Primary Care Provider [phone] Encounter Details Date Type Department Care Team (Late st Contact Info) Description 04/06/2018 Telephone [facility] Medicine Scheduling [address] [place] [address] Destiny Colindres BS Social History Tobacco Use Types Packs/Day Years Used Date Smoking Tobacco: Never Assessed Alcohol Use Standard Drinks/Week Comments No 0 (1 standard drink = 0.6 oz pur e alcohol) Comments Unknown Sex and Gender Information Value Date Recorded Sex Assigned at Not on file 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 Appt. With MARK Waldrop 05/26/2018. PT. IS AWARE TO BRING CD TO APPT. AND TO ARRIVE 45 MINS. EARLY FOR XRAYS. WARE TEST AND VALIDATION ENGINEER * Telephone Encounter - Palma Grady NP - 05/18/2018 3:27 PM CST yes WARE TEST AND VALIDATION ENGINEER * Telephone Encounter - Destiny Colindres BS - 05/18/2018 10:49 AM SOFTWARE TEST AND VALIDATION ENGINEER Next on tally sending for review, will you see? WARE TEST AND VALIDATION ENGINEER * Telephone Encounter - Cher Haddad RN - 05/16/2018 2:25 PM SOFTWARE TEST AND VALIDATION ENGINEER Send to Physiatry/MANAGER STERILE WARE TEST AND VALIDATION ENGINEER * Telephone Encounter - Ronnie Aguirre MD - 05/16/2018 2:23 PM CST Let's try to have this patient see the Physiatry/MANAGER STERILE rotation. WARE TEST AND VALIDATION ENGINEER * Telephone Encounter - Cher Haddad RN - 05/16/2018 1:51 PM SOFTWARE TEST AND VALIDATION ENGINEER Sent to for review WARE TEST AND VALIDATION ENGINEER * Telephone Encounter - Luz Smith BS - 05/16/2018 7:53 AM CST THO-Rcvd new referral for NS. All records/imaging are in Media. Will you see? WARE TEST AND VALIDATION ENGINEER * Telephone Encounter - Dipti Adams CNA - 04/28/2018 4:26 PM SOFTWARE TEST AND VALIDATION ENGINEER Waiting on new referral for NS WARE TEST AND VALIDATION ENGINEER * Telephone Encounter - Dipti Adams CNA - 04/25/2018 5:42 PM SOFTWARE TEST AND VALIDATION ENGINEER Spoke to pt she says she is wanting to see Neuro and will get new referral faxed over then send to review WARE TEST AND VALIDATION ENGINEER * Telephone Encounter - Luz Smith BS - 04/21/2018 10:13 AM SOFTWARE TEST AND VALIDATION ENGINEER Rcvd PT and injection notes from [facility] WARE TEST AND VALIDATION ENGINEER * Telephone Encounter - Luz Smith BS - 04/18/2018 2:53 PM CST Reg/intake updated, pt is calling to have PT and injection notes faxed. Called and left vm for Halima at [facility] because referral is for ORTHO surgery not NS and it's for Dr. Alvarado. If pt needs to see NS we would need new referral WARE TEST AND VALIDATION ENGINEER * Telephone Encounter - Addie Rodgers - 04/06/2018 9:32 AM SOFTWARE TEST AND VALIDATION ENGINEER Lumbar. Recd referral, demo, ins, notes and imaging, Mri-lumbar. LBP w/bilateral sciatica. WARE TEST AND VALIDATION ENGINEER documented in this encounter Plan of Treatment Not on file documented as of this encounter Visit Diagnoses Not on filedocumented in this encounter Additional Health Concerns Infection Onset Date Last Indicated Resolved Time COVID: Suspected 03/01/2024 03/01/2024 03/01/2024 11:22 AM SOFTWARE TEST AND VALIDATION ENGINEER documented as of this encounter Care Teams Resolution Specialist Relationship Specialty Start Date End Date Yolande Polo MD PCP - General Family Practice 04/18/18 09/12/23 Suzanne Joseph NP [address] [facility] [address] [place] [address] PCP - General Internal Medicine 09/13/23 documented as of this encounter
--- OUTSIDE RECORDS SUMMARY | 2024-12-28 17:56 | XMS_ITS | Encounter Summary ---
Author Organization [facility] Address [address] [place] [address] Care Team Providers Care Public Affairs Manager Name Role Phone Suzanne Joseph NP Primary Care Provider [phone] Encounter Details Date Type Department Care Team (Latest Contact Info) Description 11/27/2024 Results Follow-Up [facility] Gastroenterology at [address] [place] [address] Elver Valencia MD [address] [place] [address] [address] [place] [address] Surgical pathology Social History Tobacco Use Types Packs/Day Years Used Date Smoking Tobacco: Former Cigarettes 03/2018 Smokeless Tobacco: Current Alcohol Use Standard Drinks/Week Comments Yes 0 (1 standard drink = 0.6 oz pur e alcohol) social PHQ-2 Answer Date Recorded PHQ-2 Total Score (If total score is 3 or more points, staff should administer the PHQ-9) 0 09/26/2024 AUDIT-C Answer Date Recorded Q1: How often do you have a drink containing alcohol? Monthly or less 11/16/2024 Q2: How many drinks containi ng alcohol do you have on a typical day when you are drinking? Patient does not drink Q3: How often do you have si x or more drinks on one occasion? Never 11/16/2024 Personal Safety Answer Date Recorded Have you ever been in or are you currently in a harmful physical or emotional relationship or is someone making you feel afraid or unsafe? 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
--- OUTSIDE RECORDS SUMMARY | 2024-12-28 17:56 | XMS_ITS | Data Portability ---
Author Organization [facility] [place] Address [address] [place] [address] Care Team Providers Care Business Continuity Management Director Name Role Phone MAMI FERGUSON Primary Care Provider Assessment Encounter Date Assessment Date Assessment LastModified by Organization Details LastModified Time 10/03/2021 10/03/2021 preop for HSC and ablation in office preprocedure meds sent questions answered, procedure and recovery discussed. The indications, risks, and benefits and alternatives to surgery were discussed with the patient. I explained that the risks include, but are not limited to: bleeding and possible need for transfusion, infection, damage to adjacent structures including the bladder, ureters, bowel, or major vessels, need for additional surgery, and risks from anesthesia. I explained that there is also a chance that the symptoms may not improve after surgical intervention. She voices understanding and wishes to proceed. Will proceed. [email or web address] Not available 10/05/2021 22:19:07 10/15/2021 10/15/2021 precautions given discussed with patient fully the complications thought to be a device failure. second device worked well and easily. she feels well and left feeling normal. FU 1 week post op. Not available 10/15/2021 13:47:15 10/22/2021 10/22/2021 recovering well. FU 3 mos for WWE and to reassess menses [email or web address] Not available 10/22/2021 17:43:29 01/20/2022 01/20/2022 healthy female exam patient declines std testing pap due 2024 mammogram at 38 contraception-va sectomy doing well post ablation so far will call if needs valtrex FU 1 year or prn Not available 01/20/2022 14:11:10 01/22/2023 01/22/2023 Annual gynecological exam performed. Patient will come back in a year unless there are new symptoms. [email or web address] Not available 01/22/2023 10:08:09 Plan of Treatment Reminders Order Date Submit Date Provider Last Modified By Organization Details Last Modified Time Details Appointments None recorded. Lab test, urine 2021 022 [place] [facility] [address], [place], [address], 12:37:42 Referral None recorded. Procedures None recorded. Surgeries None recorded. Imaging None recorded. Medication Orders [place] 10 mg-325 mg tablet 2021 022 [id number], [address], [place], [id number], 13:01:30 Xanax 0.5 mg tablet 2021 022 [facility] #[id number], [address], [place], [id number], 13:01:28 Zofran 8 mg tablet 2021 022 [facility] #[id number], [address], [place], [id number], 13:01:35 ibuprofen 800 mg tablet 2021 022 [facility] #[id number], [address], [place], [id number], 13:01:33 Patient TargetsNo targets recorded. Patient InstructionsNo instructions recorded. Reason for Referral None Reported. Results Created Date Observation Date Name Description Value Unit Range Abnormal Flag Note LastModifiedBy Organization Detail LastModifiedTime 10/16/19 22 10/15/2021 pregn mylene test, urine HCG negati ve Not Available [place] [address], [place], [address], 10/15/2021 12:37:35 10/01/19 22 09/30/2021 US, pelvi s No observ ation record ed. [address], [place], [address], 09/30/2021 15:43:03 10/01/19 22 09/30/2021 US, trans vagin al No observ ation record ed. [address], [place], [address], 09/30/2021 15:43:14 10/01/19 22 09/30/2021 US, pelvi s No observ ation record ed. SARAHI J[address]zy [address], [place], [address], 10/02/2021 15:36:05 Result Notes None recorded. Problems Name Problem SNOMED Code Status Onset Date Resolution Date Notes Provider Name and Address Organization Details Recorded Time Genital herpes simplex 81973341 Active 2021 Leela Bailey MD [address], [place], [address], [facility] 2 16:34:17 History of endometria l ablation 666109695731 107 Active 2021 Leela Bailey MD [address], [place], [address], [facility] 2 17:40:27 Problem Notes None recorded. Procedures Surgical History Date Name Laterality Status Provider Name and Address Organization Details Recorded Time 10/16/19 22 Endometrial Ablation with Hysteroscopy completed Leela Bailey MD [address], [place], [address], [facility] 10/15/2021 13:45:56 10/16/19 22 Endometrial Ablation completed Betty Bonner [facility] 10/15/2021 12:35:26 09/02/19 22 Date of Last Pap Smear completed [facility] 01/20/2022 09:59:09 03/15/19 19 laminotomy completed [facility] 09/01/2021 16:21:01 03/15/19 17 procedure on urethra completed [facility] 09/01/2021 16:21:46 03/15/19 08 Appendectomy completed [facility] 09/01/2021 16:20:41 Imaging Results None recorded. Procedure Notes None recorded. Medical Equipment None Reported. Allergies Allergen ID Allergen Name Allergen Category Reaction Reaction Severity Criticality Documentation Date Start Date Code Code System Note Provider Name and Address Organization Details Recorded Time Prevacid medicatio n Not available Not available Not available 09/01/2021 77310 RxNorm [facility] 2 16:17:12 58860 Augmentin medicatio n Not available Not available Not available 09/01/2021 92367 2 RxNorm [facility] 2 16:17:19 Medications Name Sig Start Date Stop Date Status Note LastModified by Organization Details LastModified Time ibuprofen 800 mg tablet Take 1 tablet 2 hours before the procedure . 10/22 completed Not Available Not Available Not Available ondansetron HCl 8 mg tablet Take 1 tablet 2 hours before the procedure . 10/22 completed Not Available Not Available Not Available metronidazo le 500 mg tablet 09/01 completed Not Available Not Available Not Available ciprofloxac in 500 mg tablet TAKE 1 TABLET BY MOUTH TWICE DAILY 01/22 completed Not Available Not Available Not Available sulfamethox azole 800 mg-trimetho prim 160 mg tablet TAKE 1 TABLET BY MOUTH TWICE DAILY active Not Available Not Available No t Available hydrocodone 10 mg-acetamin ophen 325 mg tablet Take 1 tablet 2 hours before the procedure . 10/22 completed Not Available Not Available Not Available alprazolam 0.5 mg tablet Take 1 tablet 2 hours before the procedure . 10/22 completed Not Available Not Available Not Available amoxicillin 875 mg tablet TAKE 1 TABLET BY MOUTH TWICE DAILY 01/20 completed Not Available Not Available Not Available famotidine 20 mg tablet TAKE 1 TABLET BY MOUTH TWICE DAILY NEEDED FOR HEARTBURN 09/01 completed Not Available Not Available Not Available cephalexin 500 mg capsule TAKE 1 CAPSULE BY MOUTH TWICE DAILY 01/22 completed Not Available Not Available Not Available nitrofurant oin macrocrysta l 100 mg capsule TAKE 1 CAPSULE BY MOUTH EVERY 12 HOURS active Not Available Not Available No t Available folic acid 1 mg tablet TAKE 1 TABLET BY MOUTH DAILY 01/20 completed Not Available Not Available Not Available hydroxyzine HCl 25 mg tablet TAKE 1 TABLET BY MOUTH DAILY NEEDED FOR BLADDER PAIN active Not Available Not Available No t Available ondansetron 4 mg disintegrat ing tablet DISSOLVE 1 TABLET ON THE TONGUE EVERY 6 HOURS NEEDED FOR NAUSEA 01/20 completed Not Available Not Available Not Available fluticasone propionate 50 mcg/actuati on nasal spray,suspe nsion SHAKE LIQUID AND USE 2 SPRAYS IN EACH NOSTRIL DAILY DIRECTED 09/01 completed Not Available Not Available Not Available loratadine 10 mg tablet TAKE ONE TABLET BY MOUTH DAILY 09/01 completed Not Available Not Available Not Available moxifloxaci n 0.5 % eye drops INSTILL 1 DROP INTO THE LEFT EYE FOUR TIMES DAILY FOR 5 DAYS 01/22 completed Not Available Not Available Not Available vitamin H92-bpasv acid injection solution Take by injection route. active Not Available Not Available No t Available nitrofurant oin monohydrate /macrocryst als 100 mg capsule TAKE 1 CAPSULE BY MOUTH EVERY 12 HOURS FOR 5 DAYS active Not Available Not Available No t Available solifenacin 10 mg tablet TAKE 1 TABLET BY MOUTH DAILY active Not Available Not Available No t Available Zyrtec active Not Available Not Availa ble Not Available FeroSul 325 mg (65 mg iron) tablet TAKE 1 TABLET BY MOUTH DAILY 09/01 completed Not Available Not Available Not Available Uribel 118 mg-10 mg-40.8 mg-36 mg capsule TAKE 1 CAPSULE BY MOUTH THREE TIMES DAILY NEEDED FOR DYSURIA active Not Available Not Available No t Available Vitals Date Recorded Body height Body mass index (BMI) Body weight Systolic And Diastolic Provider Name and Address Organization Details Last Updated DateTime 10/03/2021 162.56 cm 22 kg/m2 89720.82 g 99/65 mm[Hg] [facility] 10/03/2021 15:34:26 Date Recorded Body height Body mass index (BMI) Body weight Systolic And Diastolic Provider Name and Address Organization Details Last Updated DateTime 10/15/2021 162.56 cm 22 kg/m2 21387.82 g 94/62 mm[Hg] Betty Kailey [facility] 10/15/2021 12:34:25 Date Recorded Body height Body mass index (BMI) Body weight Systolic And Diastolic Provider Name and Address Organization Details Last Updated DateTime 10/22/2021 162.56 cm 21.6 kg/m2 41348.64 g 106/66 mm[Hg] [facility] 10/22/2021 13:01:25 Date Recorded Body height Body mass index (BMI) Body weight Systolic And Diastolic Provider Name and Address Organization Details Last Updated DateTime 01/20/2022 162.56 cm 21.8 kg/m2 45282.23 g 96/65 mm[Hg] [facility] 01/20/2022 10:48:12 Date Recorded Body weight Body mass index (BMI) Body height Systolic And Diastolic Provider Name and Address Organization Details Last Updated DateTime 01/22/2023 22839.63 g 26.3 kg/m2 162.56 cm 102/69 mm[Hg] China Chavez [facility] 01/22/2023 10:09:54 Social History Question Answer Notes LastModified by Organizat ion Details LastModified Time Tobacco Smoking Status Never Smoker [facility] 01/20/2022 10:24:20 Do You Have An Advance Directive? No Information n ot available 10/15/2021 Are You Blind Or Do You Have Difficulty Seeing? No Information n ot available 10/15/2021 What Is Your Level Of Caffeine Consumption? Moderate Information not available 10/15/2021 How Much Tobacco Do You Chew? None Information not available 10/15/2021 In The 14 Days Before Symptom Onset, Have You Had Close Contact With A Laboratory-confirm ed COVID-19 While That Case Was Ill? No Information n ot available 10/15/2021 In The 14 Days Before Symptom Onset, Have You Had Close Contact With A Person Who Is Under Investigation For COVID-19 While That Person Was Ill? No Information not available 10/15/2021 Have You Been To An Area Known To Be High Risk For COVID-19? No Information not available 10/15/2021 Are You Deaf Or Do You Have Serious Difficulty Hearing? No Information not available 10/15/2021 What Type Of Diet Are You Following? REGULAR Information n ot available 10/15/2021 What Is The Highest Grade Or Level Of School You Have Completed Or The Highest Degree You Have Received? [id number] Information not available 10/15/2021 Are There Any Guns Present In Your Home? Yes Information not available 10/15/2021 Do You Use Protection During Sex? No Information not available 10/15/2021 Do You Use Your Seat Belt Or Car Seat Routinely? Yes Information not available 10/15/2021 Do You Have Smoke And Carbon Monoxide Detectors In Your Home? Yes Information not available 10/15/2021 How Much Tobacco Do You Smoke? No Information not available 10/15/2021 Do You Use Sunscreen Routinely? Yes Information not available 10/15/2021 Has Tobacco Cessation Counseling Been Provided? No [email or web address] Information not available 01/20/2022 Have You Used IV Drugs? No Information not available 10/15/2021 Sex: Female Functional Status Question Answer Note LastModified by Organizat ion Details LastModified Time Do you use any illicit or recreational drugs? No Information not available 09/01/2021 Do you or have you ever used any other forms of tobacco or nicotine? No Information not available 01/20/2022 What is your level of alcohol consumption? None Information not available 09/01/2021 Are you able to walk independently without assistance or assistive devices? YESWOREST [email or web address] Information not available 10/15/2021 What is your occupation? Stay at home mom [email or web address] Information not available 10/15/2021 What is your exercise level? Occasional Information not available 10/15/2021 Mental Status Question Answer Note LastModified by Organization D etails LastModified Time Do you feel stressed (tense, restless, nervous, or anxious, or unable to sleep at night)? [id number] [email or web address] Information not available 10/15/2021 Family History Relationship Description Onset Age of this Age Resolved Age Notes LastModified by Organization Details LastModified Time Father Anemia [email or web address] Not available 16:19:06 Father Genetic disease [email or web address] Not available 2021 10:24:20 Mother Anemia [email or web address] Not available 16:19:06 Mother Disorder of thyroid gland [email or web address] Not available 2021 16:20:20 Son Anemia [email or web address] Not available 16:19:06 Paternal Grandmother Asthma [email or web address] Not available 2021 16:19:13 Maternal Grandfather Heart disease [email or web address] Not available 2021 16:19:22 Maternal Grandfather Carcinoma in situ of lung [email or web address] Not available 10/2021 10:24:20 Brother Diabetes mellitus [email or web address] Not available 2021 16:19:30 Medical History Condition Response Allergies (Food, seasonal, environmental ) N Other N Breast Cancer N Drug/Latex Allergies/Reactions N Blood Transfusion N Dermatologic Disorders N Lung Disease N Defects or Inherited Disease N Breast Problem N Gestational Diabetes N Hematologic disorders N Anesthesia Complications N History of STI N Deep Vein Thrombosis N Polycystic ovary syndrome N Anxiety Disorder N Autoimmune disease N Arthritis N Infertility N Polyps N Acid Reflux (GERD) N History of abnormal pap N Cancer N Stroke N Varicosities N Neurologic/Epilepsy N Endometriosis N High Cholesterol N Headaches N Fibromyalgia N Kidney Disease N Heart Problems N Kidney or Bladder Problems N Thyroid Problems N GI Problems N Eating Disorder N Anemia Y Art (IVF or FET) N Psychiatric Illness N Ovarian Cancer N Diabetes N Pulmonary (TB, Asthma) N Hepatitis/Liver Disease N No Past Medical History N Eczema N Urinary Tract Infection Y Abuse/Domestic Violence N Asthma N Trauma/Violence N Depression/ depression N Heart Disease N Pre-Eclampsia N Hypertension N Osteoporosis N Thrombophilias N Gynecological History Statement/Question Response Abnormal Pap N Date of LMP 01/12/2023 Sexually Active? Y STIs/STDs Y Menses Monthly Y Age of first menstrual cycle 9 HPV Vaccine N Date of Last Pap Smear 09/01/2021 Sexual Problems? N Current Control Method Partner Vas ectomy Desired Control Method Ablation Obstetrics History GPAL:G 2 P 2 0 0 2 Type Value Full Term 2 Living 2 Total 2 Past Encounters Encounter ID Performer Location Encounter Start Date Encounter Closed Date Diagnosis/Indication Diagnosis SNOMED-CT Code Diagnosis ICD10 Code Diagnosis IMO Codes Diagnosis Note [id number] Leela Bailey MD [place] [address] [address] 09/01/2021 16:08:35 09/02/2021 17:53:41 Menorrhagia 615147273 N92.0 Screening for malignant neoplasm of cervix 826671321 Z12.4 Iron defic iency anemia 06920111 D50.9 [id number] Leela Bailey MD [place] [address],[facility] [place] [address] 09/30/2021 14:53:04 09/30/2021 15:50:30 Menorrhagia 139722934 N92.0 [id number] MD Mojgan [place] [address],[facility] [place] [address] 10/03/2021 15:16:01 10/06/2021 16:14:54 Preoperative state 16611918 Z78.9 Menorrhagia 201130548 N9 2.0 [id number] MD Shahida [place] [address],[facility] [place] [address] 10/15/2021 12:12:51 10/15/2021 14:14:11 Screening procedure 67378784 Z13.9 Menorrhagia 137940700 N9 2.0 [id number] Leela Bailey MD [place] [address] [address] 10/22/2021 12:25:54 10/22/2021 18:14:01 History of endometrial ablation 1534685869 12998 N99.85 Menorrhagia 755423032 N9 2.0 [id number] Leela Bailey MD [place] [address] [address] 01/20/2022 10:23:54 01/20/2022 14:55:12 History of endometrial ablation 7096188096 46656 N99.85 Genital he rpes simplex 70334805 A60.9 [id number] BLAYNE NIELSEN MD [place] [address],[facility] [place] [address] 01/22/2023 10:01:29 01/22/2023 13:05:01 Gynecologic examination 86773194 Z01.419 [facility]- Cervical cancer screening: Pap smear not indicated (next 2026)- Breast cancer screening: mammogram not indicated- STD testing: declined- hereditary cancer screening: does not qualify for testing Health Concerns Section Related Observation LastModified by Organization Detai ls LastModified Time None Recorded Concern Status LastModified by Organization Details LastModified Time None Recorded Advance Directives Directive N: Payers Insurance Date Sequence Insurance Name Policy Number Policy López Covered Member ID López Member ID Guarantor Name 01/19/2023 1 R [id number] Emmanuel Weinberg [id number] Camila Weinberg 01/08/2023 1 [employer] [id number] Emmanuel Weinberg [id number] Camila Weinberg Notes Date Note Type Note Provider Name and Address Organization Details Recorded Time 10/03/2021 text/html Camila is a 31yo who presents for preop for office HSC and endometrial ablation. has a vasectomy. Periods remain heavy. US earlier this week showed normal uterus and left ovary; right ovary with a 4.5cm hemorrhagic cyst. Leela Bailey MD [address], [place], [address], [facility] 10/05/2021 22:25:13 10/15/2021 text/html here for HSC and dov ablation for menorrhagia. Leela Bailey MD [address], [place], [address], [facility] 10/15/2021 13:47:41 10/22/2021 text/html Pt is a 31yo here for a postoperative visit. She underwent a HSC and enodmetrial ablation for menorrhagia. She is recovering well. Pain mild cramping. Concerns: none. some pink spotting, some watery discharge. Leela Bailey MD [address], [place], [address], [facility] 10/22/2021 17:43:40 01/20/2022 text/html Patient is a 31yo who presents for an annual exam. Had ablation in October. SInce then periods from 3 to 6 days, all multiple needle stitcher than before. Is happy with results so far. Was recently treated for UTI and yeast infections. Currently waiting to see heme for pernicious anemia. No HSV outbreak in years. last pap-08/2021 NILM sexually active- y contraception-vasect doc seatbelts-y exercise-y depression-denies domestic violence-denies tobacco-n concerns-n Leela Bailey MD [address], [place], [address], [facility] 01/20/2022 14:11:24 01/22/2023 text/html Annual GYNReport ed by Patient Presents today for her annual well-woman exam. She reports no concerns today. Is having a IC flare today, declines pelvic exam. Denies= abnormal vaginal discharge. She is sexually active and denies dyspareunia. She is using partner vasectomy for contraception, and she states that she is satisfied with this method. She has not noticed any changes or masses in her breasts. Periods are Q30 days and last 3 days. Flow is minimal s/p ablation, no intermenstrual spotting. BLAYNE NIELSEN MD [address], [place], [address], [facility] 01/22/2023 12:11:24 OBGyn Episode Ob Episode Information Episode Created Date Number of Fetuses Patient Bloodtype Patient rh Status Prepregnancy Weight lbs Domestic Partner Domestic Partner Phone Father Name Content Designer Status 09/02/19 22 1 CLOSED Fetus Data First Name Last Name Admitted to NICU Weight (g) Sex Living Outcome Pediatric Complications Fetus ID Race Codes Race Delivery Type 2919.77 1704 F Full Term [id number] Vaginal Delivery Talib Calculation Initial Talib Date Initial Exam Date Initial Exam Provider Initial Ultrasound Date Last Menstrual Period Date Ultra Sound Weeks Gestation 0 Eighteen To Twenty Week Talib Update Ultra Sound Date Fundal Height At Umbil Quickening Date Ultra Sound Latest Weeks Gestation Final Talib Confirmed By Final Talib Confirmed Date Final Talib Date Ultra Sound Latest Days Gestation 0 0 Menstrual History Last Menstrual Date Menses Monthly On Bcp Conception Prior Menses Frequency Hcg Plus Date Menarche Onset Age Delivery Information Delivery Date Delivery Type Labor Anesthesia Weeks Gestation Incision Type Labor Labor Length Hrs Delivered By Post Complications Tubal Sterilization Discharge Date Comments 2 37 Discharge Information Feeding Method Contraceptive Method Maternal HG B and HCT Levels Ob Episode Information Episode Created Date Number of Fetuses Patient Bloodtype Patient rh Status Prepregnancy Weight lbs Domestic Partner Domestic Partner Phone Father Name Content Designer Status 09/02/19 22 1 CLOSED Fetus Data First Name Last Name Admitted to NICU Weight (g) Sex Living Outcome Pediatric Complications Fetus ID Race Codes Race Delivery Type 4082.32 8 M Full Term [id number] Vaginal Delivery Talib Calculation Initial Talib Date Initial Exam Date Initial Exam Provider Initial Ultrasound Date Last Menstrual Period Date Ultra Sound Weeks Gestation 0 Eighteen To Twenty Week Talib Update Ultra Sound Date Fundal Height At Umbil Quickening Date Ultra Sound Latest Weeks Gestation Final Talib Confirmed By Final Talib Confirmed Date Final Talib Date Ultra Sound Latest Days Gestation 0 0 Menstrual History Last Menstrual Date Menses Monthly On Bcp Conception Prior Menses Frequency Hcg Plus Date Menarche Onset Age Delivery Information Delivery Date Delivery Type Labor Anesthesia Weeks Gestation Incision Type Labor Labor Length Hrs Delivered By Post Complications Tubal Sterilization Discharge Date Comments 4 39 Discharge Information Feeding Method Contraceptive Method Maternal HG B and HCT Levels
--- OUTSIDE RECORDS SUMMARY | 2024-12-28 17:56 | XMS_ITS | Clinical Summary ---
Author Organization [facility] Address [address] [place] [address] Phone Care Team Providers Care Shoelace Tipping Machine Operator Name Role Phone Nancy Pineda MD Unavailable [phone] Suzanne Joseph APRN, VEGETABLE INSPECTOR Primary Care Provider Allergies Active Allergy Reactions [...] drink = 0.6 oz pur e alcohol) [facility] Utilities Answer Date Recorded In the past [...] week 02/25/2023 How often do you attend [facility] or congregational services? More than 4 times per year 02/25/2023 Do you belong to any clubs o r organizations such as zoroastrian groups, unions, fraternal or athletic groups, or [...] Score - Questions 1-9 0 12/13 [facility] - Occupational [...] place to sleep or slept in a long term (including now)? No 02/25/2023 Education Answer Date [...] rs (Adults With 1 Tdap) 11/08/2023 11/07/2013 Pap Smear 09/01/2024 09/01/2021, 08/13/2016 Influenza Immunization (#1) 11/13/202403/16, 03/15/2009, 03/15/2009 SARS-COV-2 Immunization ( season) 2024 Cervical Cancer Screening ([facility]) 09/01/2026 HPV/Cotest 09/01/2026 [...] (HPV) 09/01/2021 12:00 AM CDT PATHOLOGY CYTOLOGY SHOWER ATTENDANT 09/01/2021 12:00 AM CDT from Last 3 Months or Most Recently Relevant to Health Maintenance Results * PATHOLOGY CYTOLOGY SHOWER ATTENDANT (09/01/2021 12:00 AM CDT) 09/01/2021 us Not On File Provider PATHOLOGY/CYTOLOGY ORDERABL ES Final Result Performing Organization Address [facility] de Phone Number SCAN * HUMAN PAPILLOMA VIRUS (HPV) (09/01/2021 12:00 AM CDT) 09/01/2021 us Not On File Provider LAB SEND OUTS Final Resul t Performing Organization Address [facility] Co de Phone Number SCAN from Last 3 Months or Most Recently Relevant to Health Maintenance Insurance [facility] Care Teams Shoelace Tipping Machine Operator Relationship Specialty Start Date End Date Suzanne Joseph, ROUTE RETURNER, VEGETABLE INSPECTOR [address] [place] [address] PCP - General Advanced Practice Nurse 10/30/24 Nancy Pineda MD Consulting Physician Obstetrics & Gynecology 12/28/17
--- OUTSIDE RECORDS SUMMARY | 2024-12-28 17:56 | XMS_ITS | Clinical Summary ---
Author Organization [facility] Address [facility] [place] [address] Care Team Providers Care Er Physician Name Role Phone Suzanne Joseph NP Primary Care Provider [phone] Allergies Active Allergy Reactions Criticality Noted Date Comments Amoxicillin-Pot Clavulanate Vomiting Low 02/15/20 15 Lansoprazole Diarrhea,Vomiting Low Medications hydrOXYzine (ATARAX) 25 mg tablet TAKE 1 TABLET BY MOUTH DAILY NEEDED FOR BLADDER PAIN 3 Active UribeL 118-10-40.8-36 mg capsule TAKE 1 CAPSULE BY MOUTH THREE TIMES DAILY NEEDED FOR DYSURIA 3 Active meclizine (ANTIVERT) 12.5 mg tabletIndicatio ns:Vertigo Take 1 tablet (12.5 mg total) by mouth 3 (three) times a day as needed for dizziness 30 tablet 1 5 Active cetirizine (ZyrTEC) 10 mg tablet Take 1 tablet (10 mg total) by mouth daily Active Active Problems Problem Noted Date Diagnosed Date Elevated anti-tissue transglutaminase (tTG) IgA level 10/31/2024 Assessment & Plan (10/31/2024 11:03 AM CDT): Was seen by Hematology previously and blood work was completed that showed elevation of tTG IgA at 75.3, gliadin IgA a 219. She was recommended to start a a gluten free diet. She states that she was having minimal complaints at that time but with her avoiding gluten, she states that if she does happen to ingest gluten that she will have complaints of severe abdominal cramping as well as increased abdominal bloating/gas. She can also have a headache affiliated with this as well. She has never had an EGD. -EGD scheduled at this time -Recommend gluten challenge for 2 weeks prior to EGD for accurate diagnosis Orders: Case Request Operating Room: ESOPHAGOGASTRODUODENOSCOPY celiac disease 09/26/2024 Vertigo 09/26/2024 Vitamin D deficiency 09/26/2024 Dysuria 08/10/2024 BMI 28.0-28.9,adult 08/10/2024 Assessment & Plan (09/26/2024 2:36 PM CDT): Discussed the patients BMI: The BMI is above average BMI management is complete. BMI follow-up includes: Nutrition Counseling and education provided Acute cough 03/01/2024 Screening for cholesterol level 09/14/2023 Overview (09/14/2023): Routine annual physical completed today. Lab work completed recently. Follow-up in 1 year sooner as needed Radiculopathy of lumbosacral region 06/02/2018 Overview (06/02/2018): Added automatically from request for surgery [id number] Herniated lumbar intervertebral disc 05/26/2018 Overview (05/26/2018): L5-S1 Chronic midline low back pain with bilateral sci atica 12/28/2017 Anemia 07/29/2013 Overview (06/19/2016): ANEMIA NOS Anxiety state 07/29/2013 Overview (06/19/2016): ANXIETY STATE NOS Interstitial cystitis Resolved Problems Problem Noted Date Diagnosed Date Resolved Date BMI 24.0-24.9, adult 03/01/2024 025 BMI 26.0-26.9,adult 09/13/2023 03/01/20 24 Encounters Date Type Department Care Team Description 5 Orders Only [facility] Gastroenterology at [address] [place] [address] Elver Valencia MD Allergy to gluten (Primary Dx) 5 Results Follow-Up [facility] Gastroenterology at [address] [place] [phone] Elver Valencia MD Surgical pathology 5 2:00 PM CDT - 5 2:30 PM CDT Surgery [facility] [address] [place] [address] Elver Valencia MD ESOPHAGOGASTRODUODENOSCOPY BIOPSY 5 1:46 PM CDT Anesthesia Event [facility] [address] [place] [address] Constantine Villarreal MD Morcos, Ehab, MD 5 12:41 PM CDT - 5 2:45 PM CDT Hospital Encounter [facility] [address] [place] [address] Elver Valencia MD Elevated anti-tissue transglutaminase (tTG) IgA level Discharge Disposition: Discharge to home or self care 5 10:30 AM CDT Office Visit [facility] Gastroenterology at [address] [address] Jazz Mcghee NP Elevated anti-tissue transglutaminase (tTG) IgA level (Primary Dx) from Last 3 Months Immunizations Immunization Administration Dates Next Due Influenza, Quadrivalent, Spl it, Preservative Free, Intramuscular 04/03/2019 Influenza, Trivalent, IM (MDV) 03/15/2009 Influenza, Unspecified 08/10/2024(Deferr ed: Patient Refused - off seaon),03/01/2024(Deferred: Patient Refused),03/15/2023(Deferred: Patient Refused),03/15/2023(Deferred: Patient Refused),03/15/2023(Deferred: Patient Refused),03/15/2009 Tdap 11/07/2013 Surgical History Surgery Date Site/Laterality Comments APPENDECTOMY ? 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 Hx Other Medical Costochondritis Gastroesophageal reflux disease GERD Anemia Gastric reflux History of transfusion 2012 was pregn ant Interstitial cystitis PONV (postoperative nausea and vomiting) Family History Medical History Relation Name Comments Diabetes Brother 1 Diabetes type I Brother 2 Diabetes jose litus type 1; Colon polyps Father Heart disease Father Other Father costochondritis ; Stroke Father Irritable bowel syndrome Mother Cancer Paternal Grandfather Heart disease Paternal Grandfather Stroke Paternal Grandfather Relation Name Status Comments Brother 1 Alive Brother 2 Father Mother Paternal Grandfather Social History Tobacco Use Types Packs/Day Years Used Date Smoking Tobacco: Former Cigarettes 2 - 03/2018 Smokeless Tobacco: Current Tobacco Cessation:Ready to Q uit: Not Asked; Counseling Given: Not Answered Alcohol Use Standard Drinks/Week Comments Yes 0 [...] on file Legal Sex Female 6:39 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[employer] Gender Identity Not on file Sexual Orientation Not on file Obstetrics History Last Filed Vital Signs Vital Sign Reading Time Taken Comments Blood Pressure 101/68 11/16/2024 2:30 PM CDT Pulse 75 11/16/2024 2:30 PM CDT Temperature 36.6 C (97.9 F) 11/16/2024 2:01 PM CDT Respiratory Rate 18 11/16/2024 2:30 PM CDT Oxygen Saturation 99% 11/16/2024 2:30 PM CDT Inhaled Oxygen Concentration - - Weight 70.3 kg (155 lb) 11/16/2024 12:54 PM CDT Height 162.6 cm (5' 4) 11/16/2024 12:54 PM CDT Body Mass Index 26.61 11/16/2024 12:54 PM CDT Plan of Treatment Health Maintenance Due Date Last Done Comments Cervical Cancer Screening 1990 Hepatitis C Screening 1990 Varicella Vaccines (1 of 2 - 13+ 2-dose series) 2001 Hepatitis B Screening 2006 HPV Vaccines (1 - 3-dose SCDM series) 07/16/2015 DTaP/Tdap/Td Vaccine (2 - Td or Tdap) 11/08/2023 11/07/2013 Influenza Vaccine (#1) 2024 , 03/15/2009, 03/15/2009 Depression Screening 09/26/2025 09/26/2024, 08/10/2024, 03/01/2024, Additional history exists Regular Well Visit/Exam 18-64 09/26/2025 09/26/2024, 09/13/2023 Pneumococcal vaccine <65 Aged Out No longer eligible based on patient's age to complete this topic Procedures Procedure Name Priority Date/Time Associated Diagnosis Comments SURGICAL PATHOLOGY Routine 11/16/2024 1:51 PM CDT Elevated anti-tissue transglutaminase (tTG) IgA level ESOPHAGOGASTRODUODENOSCOPY BIOPSY 11/16/2024 1:44 PM CDT Elevated anti-tissue transglutaminase (tTG) IgA level EGD 11/16/2024 1:43 PM CDT POCT HCG, URINE Routine 11/16/2024 1:19 PM CDT VITAMIN D 25 HYDROXY Routine 10/31/2024 8:28 AM CDT Vitamin D deficiency IRON PROFILE W/ IBC Routine 10/31/2024 8:28 AM CDT Screening for deficiency anemia VITAMIN B12 AND FOLATE Routine 8:28 AM CDT Screening for deficiency anemia TSH Routine 10/31/2024 8:28 AM CDT Screening for thyroid disorder COMPREHENSIVE METABOLIC PANEL Routine 8:28 AM CDT Screening for diabetes mellitus HEMOGLOBIN A1C Routine 10/31/2024 8:28 AM CDT Screening for diabetes mellitus LIPID PANEL Routine 10/31/2024 8:28 AM CDT Screening for cholesterol level from Last 3 Months Results * Surgical pathology (11/16/2024 1:51 PM CDT) Tissue (Duodenum, Biopsy) 11/16/2024 1:51 PM CDT Tissue specimen (specimen) (Gastric/Stomach biopsy) 11/16/2024 1:52 PM CDT Narrative PATHOLOGY [facility] - 11/20/2024 12:22 PM CDT [facility] Department of Pathology [address] [place] [address] Note to Patients: This report may contain a detailed description of human tissue sent by a health care provider to the laboratory for pathologic evaluation. The content of this report is essential for diagnosis and may provide important critical findings. This information may be unfamiliar to patients to review without a medical professional present. It is advised that the patient review this report in the presence of a health care provider who can answer questions and explain the details. Final Report Patient Name: CAMILA HICKEY : 1990 (Age: 34) Gender: F Address: [address] [place] [id number] Hospital #: [id number] Service: Gastro Location: Patient Type: [facility] OUTPATIENT Taken: 11/16/2024 Received: 11/17/2024 Accessioned: 11/17/2024 Reported: 11/20/2024 Physician(s): MD Suzanne Cabral FNP Diagnosis: A. Small intestine, duodenum, biopsy: - Duodenal mucosa with increased intraepithelial lymphocytes and predominantly preserved villous architecture (see comment). B. Stomach, body and antrum, biopsy: - Antral and oxyntic mucosa with chronic inflammation. - No Helicobacter pylori is seen on H&E stained slides. Diagnosis Comment: The patient's reported positive celiac serology (serum tTG IgA elevation) and gluten-free diet is noted. Part A: The histologic features can be seen in treated celiac disease/gluten-sensitive enteropathy. Correlation with results of celiac serology is recommended. João Cronin MD, PHD Report Electronically Reviewed and Signed Out By João Cronin MD, PHD 11/20/2024 12:22:17 Specimen(s) Received: A: Duodenal biopsy rule out Celiac disease B: Gastric body and antrum biopsy rule out H.Pylori Microscopic Description: Unless gross-only is specified, the final diagnosis for each specimen is based on a microscopic examination of each tissue sample. Clinical History: The patient is a 34-year-old woman with an elevated anti-tissue transglutaminase IgA level. Operative procedure: Upper GI endoscopy with biopsy. Gross Description Received in two formalin jars labeled with the patient's identifiers. A. Labeled duodenal biopsy rule out celiac disease and consists of five roe tissue fragments ranging from 0.2-0.3 cm. Entirely submitted. Labeled A1. Jar 0. B. Labeled gastric body and antrum biopsy rule out H pylori and consists of two roe tissue fragments measuring 0.2 cm and 0.3 cm. Entirely submitted. Labeled B1. Jar 0. jjb/11/17/2024 10:58 ANA CRISTINA Mai, PA (ASCP) Microscopic slide review and interpretation for this case was performed at [facility], Department of Surgical Pathology, [address] [facility] [place], [place] [id number], [place] [address] CLIA # [id number] us Elver Valencia MD LAB PATHOLOGY ORDERABLES Final Result PATHOLOGY [facility] * EGD (11/16/2024 1:43 PM CDT) Anatomical Region Laterality Modality Other Narrative Procedure Note Elver Valencia MD - 11/16/2024 1:43 PM CDT [facility] GI ENDOSCOPY Patient Name: Camila Hickey Procedure Date: 11/16/2024 1:43 PM Date of : 1990 Admit Type: Outpatient Age: 34 Gender: Female Attending MD: Elver Valencia M.D., Room: [facility] ENDOSCOPY ROOM 04 Note Status: Finalized Procedure: Upper GI endoscopy Indications: Dyspepsia +TTG IGA 75.3 Referring MD: Xochitl García Providers: Elver Valencia M.D. Medicines: See the Anesthesia note for documentation of the administered medications Complications: No immediate complications. Estimated Blood Loss: Estimated blood loss was minimal. Procedure: Pre-Anesthesia Assessment: - Prior to the procedure, a History and Physicalwas performed, and patient medications and allergieswere reviewed. The risks and benefits of the procedureand the sedation options and risks were discussed withthe patient. All questions were answered and informed consent was obtained. Patient identification and proposed procedure were verified. After reviewingthe risks and benefits, the patient was deemed in satisfactory condition to undergo the procedure.The anesthesia plan was to use monitored anesthesiacare (MAC). Immediately prior to administration of medications, the patient was re-assessed foradequacy to receive sedatives. The heart rate, respiratory rate, oxygen saturations, blood pressure, adequacyof pulmonary ventilation, and response to care were monitored throughout the procedure. The physical status of the patient was re-assessed after the procedure. The benefits, risks, and alternatives to theprocedure and sedation were discussed and informed consentwas obtained. The scope was passed under direct vision. The GIF-H190 Upper endoscope was introduced through the mouth, and advanced to the second part of duodenum. The upper GI endoscopy was accomplished without difficulty. The patient tolerated the procedure well. Findings: The examined esophagus was normal. A small sliding type hiatal hernia was present. Patchy non-erosive mildly erythematous mucosa was found in thegastric antrum. Biopsies were taken with a cold forceps for Helicobacterpylori testing. The examined duodenum revealed mild duodenal ?scalloping. Biopsiesfor histology were taken with a cold forceps for evaluation of celiac disease. Impression: - Normal esophagus. - Small hiatal hernia. - Gastritis. Biopsied. - The examined duodenum revealed mild duodenal ?scalloping. Biopsies for histology were taken witha cold forceps for evaluation of celiac disease. Recommendation: - Await pathology results. - Resume previous diet today. - Discharge patient to home. - Patient has a contact number available for emergencies. The signs and symptoms of potential delayed complications were discussed with thepatient. Return to normal activities tomorrow. Written discharge instructions were provided to thepatient. - Avoid NSAIDs. Low dose ASA ok if clinicallyindicated - I would be happy to see you in my GI clinic ifyou have further questions or concerns or if symptoms progress Elver Valencia M.D. 11/16/2024 1:58:40 PM Number of Addenda: 0 Note Initiated On: 11/16/2024 1:43 PM Recognized by the [place] [employer] for promoting quality in endoscopy us Elver Valencia MD ENDOSCOPY PROCEDURES Sravani l Result * POCT hCG, urine (11/16/2024 1:19 PM CDT) Pathologist [facility] HCG, ur, POC Negative Negative Lot Number [id number] QC Backgroud Clear Acceptable QC Control Line Acceptable Urine 11/16/2024 1:19 PM CDT Constantine Villarreal MD POINT OF CARE TEST ORDER FELECIA Final Result * (ABNORMAL) Vitamin B12 and Folate (10/31/2024 8:28 AM CDT) Pathologist [facility] Vitamin B12 281 200 - 1,100 pg/mL [facility] Comment: Please Note: Although the reference range for vitamin B12 is 200-1100 pg/mL, it has been reported that between 5 and 10% of patients with values between 200 and 400 pg/mL may experience neuropsychiatric and hematologic abnormalities due to occult B12 deficiency; less than 1% of patients with values above 400 pg/mL will have symptoms. Folate, Serum 3.2(L) ng/mL [facility] Comment: Reference Range Low: <3.4 Borderline: 3.4-5.4 Normal: >5.4 Blood 10/31/2024 8:28 AM CDT 10/31/2024 8:28 AM CDT Narrative [facility] - 11/01/2024 1:40 AM CDT FASTING:YES FASTING: YES Suzanne Joseph PATENT LITIGATION ASSOCIATE LAB BLOOD ORDERABLES Final Re sult [facility] [address] [facility] [place] [address] * Iron profile w/ IBC (10/31/2024 8:28 AM CDT) Pathologist [facility] Iron 84 40 - 190 mcg/dL [facility] TIBC 271 250 - 450 mcg/dL (calc) [facility] Iron saturation 31 16 - 45 % (calc) [facility] Blood 10/31/2024 8:28 AM CDT 10/31/2024 8:28 AM CDT Narrative [facility] - 11/01/2024 1:40 AM CDT FASTING:YES FASTING: YES Suzanne Joseph PATENT LITIGATION ASSOCIATE LAB BLOOD ORDERABLES Final Re sult Performing Organization Address [facility] Co de Phone Number [facility] [address] [place] [address] * Vitamin D 25 hydroxy (10/31/2024 8:28 AM CDT) Vitamin D 25-OH 40 30 - 100 ng/mL [facility] Comment: Vitamin D Status 25-OH Vitamin D: Deficiency: <20 ng/mL Insufficiency: 20 - 29 ng/mL Optimal: > or = 30 ng/mL For 25-OH Vitamin D testing on patients on D2-supplementation and patients for whom quantitation of D2 and D3 fractions is required, the [facility](TM) 25-OH VIT D, (D2,D3), LC/MS/MS is recommended: order code 87095 (patients >2yrs). See Note 1 Note 1 For additional information, please refer to http://education.Appolicious/faq/QLV878 (This link is being provided for informational/ educational purposes only.) Blood 10/31/2024 8:28 AM CDT 10/31/2024 8:28 AM CDT Narrative [facility] - 11/01/2024 1:40 AM CDT FASTING:YES FASTING: YES Suzanne Joseph PATENT LITIGATION ASSOCIATE LAB BLOOD ORDERABLES Final Re sult Performing Organization Address [facility]/ZIP Co de Phone Number [facility] [address] [place] [address] * TSH (10/31/2024 8:28 AM CDT) TSH 1.45 mIU/L [facility] Comment: Reference Range > or = 20 Years 0.40-4.50 Ranges First trimester 0.26-2.66 Second trimester 0.55-2.73 Third trimester 0.43-2.91 Blood 10/31/2024 8:28 AM CDT 10/31/2024 8:28 AM CDT Narrative [facility] - 11/01/2024 1:40 AM CDT FASTING:YES FASTING: YES Suzanne Joseph PATENT LITIGATION ASSOCIATE LAB BLOOD ORDERABLES Final Re sult Performing Organization Address City/[facility]/ZIP Co de Phone Number [facility] [address] [place] [address] * Hemoglobin A1c (10/31/2024 8:28 AM CDT) Hgb A1C 5.5 <5.7 % of total Hgb [facility] Comment: For the purpose of screening for the presence of diabetes: <5.7% Consistent with the absence of diabetes 5.7-6.4% Consistent with increased risk for diabetes (prediabetes) > or =6.5% Consistent with diabetes This assay result is consistent with a decreased risk of diabetes. Currently, no consensus exists regarding use of hemoglobin A1c for diagnosis of diabetes in children. According to [place] [employer] Association (ADA) guidelines, hemoglobin A1c <7.0% represents optimal control in non- diabetic patients. Different metrics may apply to specific patient populations. Standards of Medical Care in Diabetes(ADA). Blood 10/31/2024 8:28 AM CDT 10/31/2024 8:28 AM CDT Narrative [facility] - 11/01/2024 1:40 AM CDT FASTING:YES FASTING: YES Suzanne Joseph PATENT LITIGATION ASSOCIATE LAB BLOOD ORDERABLES Final Re sult [facility] [address] [place] [address] * Lipid panel (10/31/2024 8:28 AM CDT) Cholesterol 151 <200 mg/dL [facility] HDL 56 > OR = 50 mg/dL [facility] Triglycerides 59 <150 mg/dL [facility] LDL 81 mg/dL (calc) [facility] Comment: Reference range: <100 Desirable range <100 mg/dL for primary prevention; <70 mg/dL for patients with CHD or diabetic patients with > or = 2 CHD risk factors. LDL-C is now calculated using the Rosy calculation, which is a validated novel method providing better accuracy than the Friedewald equation in the estimation of LDL-C. Lavell SS et al. LALO. 2013;310(19): 4267-7475 (http://education.Appolicious/faq/VFW710) Chol/HDL ratio 2.7 <5.0 (calc) [facility] Non-HDL, (LDL+VLDL) 95 <130 mg/dL (calc) [facility] Comment: For patients with diabetes plus 1 major ASCVD risk factor, treating to a non-HDL-C goal of <100 mg/dL (LDL-C of <70 mg/dL) is considered a therapeutic option. Blood 10/31/2024 8:28 AM CDT 10/31/2024 8:28 AM CDT Narrative [facility] - 11/01/2024 1:40 AM CDT FASTING:YES FASTING: YES Suzanne Joseph PATENT LITIGATION ASSOCIATE LAB BLOOD ORDERABLES Final Re sult [facility] [address] [place] [address] * Comprehensive metabolic panel (10/31/2024 8:28 AM CDT) [facility] Glucose 92 65 - 99 mg/dL [facility] Comment: Fasting reference interval BUN 10 7 - 25 mg/dL [facility] Creatinine 0.60 0.50 - 0.97 mg/dL [facility] eGFR 119 > OR = 60 mL/min/1.7 3m2 [facility] BUN/creat ratio SEE NOTE: 6 - 22 (calc) [facility] Comment: Not Reported: BUN and Creatinine are within reference range. Sodium 137 135 - 146 mmol/L [facility] Potassium, pl 4.0 3.5 - 5.3 mmol/L [facility] Chloride 104 98 - 110 mmol/L [facility] CO2 29 20 - 32 mmol/L [facility] Calcium 9.2 8.6 - 10.2 mg/dL [facility] Protein, sr 6.4 6.1 - 8.1 g/dL [facility] Albumin 4.2 3.6 - 5.1 g/dL [facility] GLOBULIN 2.2 1.9 - 3.7 g/dL (calc) [facility] Alb/glob ratio 1.9 1.0 - 2.5 (calc) [facility] Bilirubin, total 0.5 0.2 - 1.2 mg/dL [facility] Alk phos 55 31 - 125 U/L [facility] AST 16 10 - 30 U/L [facility] ALT (SGPT) 11 6 - 29 U/L [facility] Blood 10/31/2024 8:28 AM CDT 10/31/2024 8:28 AM CDT Narrative [facility] - 11/01/2024 1:40 AM CDT FASTING:YES FASTING: YES Suzanne Joseph NP LAB BLOOD ORDERABLES Final Re sult [facility] [address] [facility] [place] [address] from Last 3 Months Insurance [facility] [employer]/PPO Address: [address] [place] [id number] [facility] [employer]/PPO Address: [place] [address] Advance Directives For more information, please contact: [phone] * Full Code (Latest Code Status on File) Date Activated Date Inactivated Comments 06/29/2018 2:40 PM 06/30/2018 6:24 PM Care Teams Er Physician Relationship Specialty Start Date End Date Suzanne Joseph NP [address] [facility] [address] [place] [address] PCP - General Internal Medicine 09/13/23
--- OUTSIDE RECORDS SUMMARY | 2024-12-28 17:56 | XMS_ITS | Encounter Summary ---
Author Organization [facility] Address [address] [facility] [place] [address] Phone Care Team Providers Care Warp Doffer Name Role Phone Nancy Pineda MD Unavailable [phone] Montserrat Graves MD Primary Care Provider [phone] Suzanne Joseph APRN, BEAM DOFFER Primary Care Provider Reason for Visit * Reason Comments Medication Refill Encounter Details Date Type Department Care Team (Late st Contact Info) Description 03/30/2023 Refill [facility] [address] [place] [address] Emmanuel Briceno APRN, BEAM DOFFER [address] [place] [address] Medication Refill Social History Tobacco Use Types Packs/Day Years Used Date Smoking Tobacco: Former Cigarettes 1 4 Smokeless Tobacco: Never Alcohol Use Standard Drinks/Week Comments No 0 (1 standard drink = 0.6 oz pur e alcohol) [facility] Utilities Answer Date Recorded In the past 12 months has [employer], gas, oil, or water company threatened to [...] often do you attend chur ch or jewish services? More than 4 times per year 02/25/2023 Do you belong to any clubs o r organizations such as nondenominational groups, unions, fraternal or athletic groups, or [...] 12/13 [facility] - Occupational Stress Questionnaire Answer Date Recorded [...] place to sleep or slept in a assisted (including now)? No 02/25/2023 Education Answer Date [...] documented as of this encounter Care Teams Warp Doffer Relationship Specialty Start Date End Date Montserrat Graves MD [address] [place] [address] PCP - General Family Medicine 02/23/23 10/29/24 Suzanne Joseph, [employer] MANAGER, BEAM DOFFER [address] [place] [address] PCP - General Advanced Practice Nurse 10/30/24 Nancy Pineda MD Consulting Physician Obstetrics & Gynecology 12/28/17 documented as of this encounter
== END 2024-12-28 17:17 | disposition home or self-care (01) ==
PROVIDERS: Emergency Provider Nurse Practitioner; PCP Nurse Practitioner Family
DX: N39.0 Urinary tract infection, site not specified (principal); Z87.891 Personal history of nicotine dependence
CPT/HCPCS: 81003; 87077; 87086; 87186; 99213; G0463